=== PATIENT | male | born 1965 | race Caucasian/White ===

== ENCOUNTER 2017-09-27 09:19 | Emergency (ER) | payer BC ==
[~2017-09-27] VITALS: Ht 180.3 cm; Wt 181.5 kg
[~2017-09-27 09:19] MED LIST: ASPEC81 PO; ATEN-173 PO; HYDC25 PO; LSN10 PO; PLV75 PO; POTASSIUM OTC PEG; RQP25 PO
[2017-09-27 09:22] VITALS: TEMP 37.1; Ht 180.3 cm; Wt 181.5 kg
--- NOTE | 2017-09-27 09:56 | EMERGENCY ROOM VISIT NOTE ---
ED Visit Note First contact with patient: 09:27 CHIEF COMPLAINT: right knee pain HISTORY OF PRESENT ILLNESS: This 52-year-old male patient presents to the emergency department 1 day after sustaining an injury to the right knee. The patient is uncertain exactly what caused the injury, but states he was doing a lot of walking yesterday. He does have a history of arthritis in that same knee , and states his pain that he is experiencing now is consistent with his arthritis pain he has had in the past. He states last evening, his pain began increasing, and he noticed some mild swelling within the knee. The pain is mostly on the medial aspect of the knee, and radiates up towards the groin, but not into the groin. The patient did take 3 ibuprofen this morning and 3 last evening, with minimal relief in his symptoms. The patient denies any other injuries besides their knee. The patient denies swelling or bruising. They rate the pain as sharp and 9/10. The patient states they are able to walk on it. No numbness or tingling. No previous injuries to this knee. No ankle, foot or hip pain. The patient does not have a history of blood clots or DVTs. He does not live a sedentary lifestyle, and is on no hormones. There was no recent travel. He does report previous intra-articular surgery for arthritis. REVIEW OF SYSTEMS: A 6 system review of systems was completed with positives and pertinent negatives listed in the HPI. ALLERGIES: None MEDICATIONS: Plavix, Ropinirole, lisinopril, atenolol, aspirin, potassium, meloxicam, Pravachol PMH: Hypertension, cardiac stent, knee surgeries, asthma, COPD, gallstone SOCIAL HISTORY: The patient lives locally with family. He denies drug, alcohol , tobacco use. PHYSICAL EXAM: Vital Signs: Reviewed Nurse's notes, vital signs stable. GENERAL : This is a 52-year-old obese white male, no acute distress, but appears in pain , well-developed, well-nourished. MENTAL STATUS: Alert, oriented to person place and time, and cooperative. MUSCULOSKELETAL: The right knee is mildly swollen medially. There is no ecchymosis. There is no obvious joint effusion present. The patient is tender in the medial aspect and radiating up toward the medial thigh. There is no joint line tenderness. The patella does appropriately subluxate. Range of motion is full. Strength of the quads and hamstrings is 5/ 5. Allie's is negative. Glendy's and Anterior Drawer tests are negative. There is no discomfort or laxity with varus and valgus stressing. The foot and toes are warm and well-perfused. Dorsalis pedis pulse 2+. Sensation to pain and light touch is intact. Capillary refill less than 2 seconds. RADIOLOGY: RIGHT KNEE 3 VIEWS CLINICAL HISTORY: Medial right knee pain. FINDINGS: AP, crosstable lateral, and sunrise views of the right knee are obtained. No prior studies are available for comparison at the time of dictation. The skeletal structures are well mineralized. No fracture is seen. There is moderate narrowing seen in the medial and patellofemoral compartments. The lateral joint space is preserved. There are large marginal osteophytes and small patellar enthesophytes. A small joint effusion is identified. Mild soft tissue swelling is seen around the knee. IMPRESSION: 1. Mild soft tissue swelling and joint effusion. No acute bony abnormality is identified. 2. Arthritic change as above. Electronically signed by: Lei Lopez M.D. 09/27/2017 10:26 AM Dictated Date/Time: 09/27/2017 10:25 AM EMERGENCY DEPARTMENT COURSE: I examined the patient. X-rays of the right knee were reviewed by myself and read by radiology as above. After the patient an assistive device for ambulation including walker, crutches, or cane. The patient declines. I discussed with him treatment options including anti- inflammatories, steroids, or topical medications. The patient would like to try some Voltaren gel topically, and will follow up outpatient with his orthopedic surgeon. He did request a steroid prescription in case of worsening symptoms, as he is going out of town tomorrow. Discharge instructions reviewed , and the patient was discharged home in good condition. Blood Pressure Screening: Patient was found to have a slightly elevated blood pressure due to circumstances. I do not believe that the patient requires hypertension monitoring. I attest that I have personally reviewed the patient's current medication list. DIFFERENTIAL DIAGNOSIS: Fracture, sprain, strain, contusion, arthritis, rheumatoid arthritis, Lyme disease, gout, cellulitis, septic arthritis, malignancy, and others DIAGNOSIS: Right knee pain Problem List Medical Problems: (1) HTN (hypertension) Status: Chronic Current/Historical Medications Scheduled Aspirin (Aspirin EC Low Dose), 81 MG PO QPM Atenolol (Tenormin), 50 MG PO QPM Atorvastatin (Lipitor), 80 MG PO QPM Clopidogrel (Plavix), 75 MG PO QPM Hydrochlorothiazide (Hctz), 25 MG PO QPM Lisinopril (Zestril), 20 MG PO QPM Meloxicam (Mobic), 15 MG PO QPM Methylprednisolone (Medrol Dosepak), 0 PO DAILY Pantoprazole (Protonix), 40 MG PO QPM Potassium (Potassium), 1 TAB PO QPM Scheduled PRN Diclofenac Sodium (Topical) (Voltaren 1% Top Gel), 1 APPLN TOP QID PRN for Pain Nitroglycerin (Nitrostat), 0.4 MG UT PRN PRN for CHEST PAIN Ropinirole HCl (Ropinirole HCl), 0.25 MG PO HS PRN for restless leg Allergies Coded Allergies: No Known Allergies (Verified , `, 09/27/17) Vital Signs Date Time Temp Pulse Resp B/P (MAP) Pulse Ox O2 Delivery O2 Flow Rate FiO2 09/27/17 11:17 63 18 171/97 94 09/27/17 09:22 37.1 63 18 184/120 94 Room Air Departure Information Impression Primary Impression: Knee pain Dispostion Home / Self-Care Condition GOOD Prescriptions Methylprednisolone (MEDROL DOSEPAK) 4 Mg Donovan 0 PO DAILY, #1 PKT Prov: Parul Vanegas PA-C 09/27/17 Diclofenac Sodium (Topical) (VOLTAREN 1% TOP GEL) 1 % Gel 1 APPLN TOP QID Y for Pain, #1 TUBE Prov: Parul Vanegas PA-C 09/27/17 Referrals No Doctor, Assigned (PCP) Chauncey Orozco M.D. Patient Instructions ED Knee Pain [facility], [facility] Additional Instructions You have been treated in the Emergency Department for Knee Pain. You have been prescribed Voltaren gel to be used topically on the affected joint up to 4 times daily for pain. Use this medication as prescribed. You have been prescribed a Medrol Dosepak to be taken ONLY if no improvement in 2-3 days with other remedies. This is a steroid which will help decrease your inflammation, redness, and itch. Take the medicine as prescribed. Take the ENTIRE 6 day course of the steroids. As discussed, this medication can increase her risk of cardiac events. Do not take any other NSAIDs including meloxicam, ibuprofen, Advil, Motrin, Aleve, naproxen while taking steroids. For pain control, you can use the following qaya-ndm-roabgne medicines (if >12 yo): Acetaminophen(Tylenol) may be used for fever or pain. Use 1000mg every six hours as needed. Avoid using more than 3000mg in a 24 hour period. If this is a recent injury (<24 hrs), ice can be applied to the area of pain for the first 3 days to help decrease pain and inflammation. Ice massages can be performed by freezing water in a paper cup, peeling back the cup to expose the ice and then massaging over the affected area. Use a walker or cane if needed to help with ambulation and balance. Follow-up with your orthopedic surgeon as soon as possible for further evaluation of your chronic knee pain. Return to the Emergency Department if your current symptoms worsen despite treatment course outlined above. Problem Qualifiers Primary Impression: Knee pain Chronicity: acute Laterality: right Qualified Codes: M25.561 - Pain in right knee
[2017-09-27] MEDS ORDERED: PANT40TA PO (10:21)
[2017-09-27] MEDS ORDERED: NTRGSL/4 UT (10:21)
[2017-09-27] MEDS ORDERED: MELO-84 PO (10:21)
[2017-09-27] MEDS ORDERED: ATEN50TA8 PO (10:21)
[2017-09-27] MEDS ORDERED: LISI-725 PO (10:21)
[2017-09-27] MEDS ORDERED: HYDR25TA4 PO (10:21)
[2017-09-27] MEDS ORDERED: CLOP1TAB15 PO (10:21)
[2017-09-27] MEDS ORDERED: POTA75TA PO (10:21)
[2017-09-27] MEDS ORDERED: ATOR-26 PO (10:21)
--- NOTE | 2017-09-27 10:28 | DIAGNOSTIC IMAGING REPORT ---
RIGHT KNEE 3 VIEWS CLINICAL HISTORY: Medial right knee pain. FINDINGS: AP, crosstable lateral, and sunrise views of the right knee are obtained. No prior studies are available for comparison at the time of dictation. The skeletal structures are well mineralized. No fracture is seen. There is moderate narrowing seen in the medial and patellofemoral compartments. The lateral joint space is preserved. There are large marginal osteophytes and small patellar enthesophytes. A small joint effusion is identified. Mild soft tissue swelling is seen around the knee. IMPRESSION: 1. Mild soft tissue swelling and joint effusion. No acute bony abnormality is identified. 2. Arthritic change as above. Electronically signed by: Lei Lopez M.D. 09/27/2017 10:26 AM Dictated Date/Time: 09/27/2017 10:25 AM
[2017-09-27] MEDS ORDERED: METH4PAK PO (11:05)
[2017-09-27] MEDS ORDERED: DICL1GEL12 TOP (11:05)
[2017-09-27 11:17] VITALS: BP 171/97; PULSE 63; O2SAT 94
== END 2017-09-27 11:17 | disposition home or self-care (01) ==
LOC: C.EDB 09:22 → C.EDA 11:17
DX: S89.91XA Unspecified injury of right lower leg, initial encounter (principal); X58.XXXA Exposure to other specified factors, initial encounter; Y93.01 Activity, walking, marching and hiking; M17.11 Unilateral primary osteoarthritis, right knee; I10 Essential (primary) hypertension; J44.9 Chronic obstructive pulmonary disease, unspecified; Z98.890 Other specified postprocedural states; Z79.82 Long term (current) use of aspirin; Z95.5 Presence of coronary angioplasty implant and graft

== ENCOUNTER → 2018-02-23 | Outpatient (CLI) | payer BC ==
[~2018-02-23] MED LIST changes: -ASPEC81 PO; +ASPI-320 PO; -ATEN-173 PO; +ATEN50TA8 PO; +ATOR-26 PO; +CLOP1TAB15 PO; +DICL1GEL12 TOP; -HYDC25 PO; +HYDR25TA4 PO; +LISI-725 PO; -LSN10 PO; +MELO-84 PO; +NTRGSL/4 UT; +PANT40TA PO; -PLV75 PO; +POTA75TA PO; -POTASSIUM OTC PEG
--- NOTE | 2018-02-24 00:55 | PAP/PSG TECHNICIAN REPORT ---
[facility] Produce Team Member Polysomnogram Report Study name: None Report date: 02/24/2018 Study date: 02/23/2018 Referring Physician: Dr. Faith Whitley M.D. Name: DEANN RDZ Galo Interpreting Physician: Faith Whitley M.D. Date of : 1965 Produce Team Member: GOKUL Thomas. Sex: Male Age: 52 StudyType: PSG PAP Weight: 407 lbs Height: 52 years, Height 5' 11" Neck Circum:19.25inches BMI: 56.76 Medications: ASA, Ropinirole, Lisinopril, HCTZ, Indomethacin, Acetaminophen, Atenolol, Atorvastatin, Pantoprazole, [place] 3, Fish Oil, Meloxicam, Potassium, NTG Patient History Study started on room air with 5cwp in room #8. 52 yr old male here tonight for a new titration study. He had a PSG at [facility] that had an AHI of 81.3. His ESS=21/24. Neck circ=19.25inches. Tonight, he is having severe pain in his right knee. He stated that he took at least twenty- four (24) Tylenol today for pain. Parameters Monitored NPSG: E1-M2, E2-M1, Fp1-M2, Fp2-M1, F3-M2, F4-M2, F4-M1, C3-M2, C4-M2, C4-M1, O1-M2, O2-M2, O2-M1, T3-M2, T4-M1, P3-M2, P4-M1, CHIN1, CHIN2, HR, EKG, Legs, PFLOW, SNOR, FLOW, CFLOW, Tidal Volume, THOR, ABDO, SpO2, PLTH, CPRESS, ETCO2 Wave, ETCO2, pH Sleep Architecture Sleep Stages Time at Lights Off 10:53:49 PM STAGES Time (min.) TST (%) Time at Lights On 12:39:49 AM Wake 57.0 -- Total Recording Time (TRT) 106.00 min. N1 4.0 8 Total Sleep Period (TSP) 91.0 min. N2 45.0 92 Total Sleep Time (TST) 49.0min. N3 0.0 0 Awake Time 57.0 min. REM 0.0 0 Wake after Sleep Onset 57.0 min. Sleep Efficiency (SE) 46 % Sleep Onset Latency (SELVIN) 0.0 min. Number of Stage 1 Shifts None Awakenings 4 Stage Changes 14 Number of REM periods N/A REM 0.0 0 REM Latency NONE min. NREM 49.0 100 Body Position Analysis Supine Right Left Side Prone Vertical Total Sleep Time (min.) 54.1 1.5 1.0 2.50 0.0 0.0 Total Sleep Time (%) 95% 3% 2% 5 0% N/A% Total Sleep Time REM (min.) 0.0 0.0 0.0 None 0.0 0.0 Total Sleep Time NREM (min.) 46.5 1.5 1.0 None 0.0 0.0 Intermittent Wake (min.) 7.6 35.5 14.0 None 0.0 0.0 Total Sleep Period (%) 58% None None None None None Arousals Myoclonus (PLM) * Events Count Index Events Count Index Spontaneous 1 1 Events Awake (PLMW) 102 107.4 Respiratory 33 41.6 Events Asleep w/ Arousal (PLMA) 2 2.4 PLM 2 2 Events Asleep w/o Arousal (PLMS) 97 118.8 Snoring 2 2 Total Asleep 99 121.2 Total 38 47 Total 201 114 Respiratory Analysis * CA OA MA CH H RERA Total Count 0 5 0 0 79 2 84 Index 0.0 6.1 0.0 0 96.7 2 102.9 Mean Duration 0.0 17.3 0.0 0.00 24.4 0.1 24.0 Longest Duration 0.0 21.5 0.0 0.00 0.0 0.1 65.4 Respiratory Event Summary Total Supine ~Supine Right Left Prone REM NREM Apneas Count 5 5 0 0 0 N/A N/A 5 Index 6.1 6 0 0.0 0.0 N/A N/A 6 Hypopneas (4% Desat) Count 79 75 4 2 2 N/A N/A 79 Index 96.7 96.8 96 80.0 120.0 N/A N/A 96.7 Apneas & All Hypopneas Count 84 80 4 2 2 N/A N/A 84 Index 102.9 103 96 80 120 N/A N/A 102.9 Respiratory Events (Quality Assurance Supervisor Final+All Hyp+RERA) Count 84 80 4 2 2 N/A N/A 84 Index 102.9 103 96 80.0 120.0 N/A N/A 102.9 Respiratory Related Arousal Count 33 80 4 2 2 N/A N/A 34 Index 41.6 39 96 80 120 N/A N/A 42 Snoring Analysis Supine Right Left Prone REM NREM Total Snore duration 11.9 min Snores count 315 7 0 N/A N/A 322 322 Snore mean duration 2.2 Sec Snores index 406 280 0 N/A N/A 394.3 394.3 TST with snoring (%) 24.3% Desaturation Event Summary: Minimum %SpO2 Event Count Mean/Min/Max Duration(sec.) Desaturation Index % Time In Bed > 90 111 19.6 / 5.8 / 50.5 151.1 50.8 86 - 90 48 18.0 / 0.0 / 49.5 104.6 31.7 81 - 85 8 13.0 / 4.8 / 21.3 39.7 13.9 76 - 80 0 N/A 0.0 3.2 71 - 75 0 N/A 0.0 0.4 66 - 70 0 N/A 0.0 0.0 61 - 65 0 N/A 0.0 0.0 56 - 60 0 N/A 0.0 0.0 51 - 55 0 N/A 0.0 0.0 < 50 0 N/A 0.0 0.0 Total REM NREM Awake <50% 0.0 min. 0.0 min. 0.0 min. 0.0 min. 51 - 60% 0.0 min. 0.0 min. 0.0 min. 0.0 min. 61 - 70% 0.0 min. 0.0 min. 0.0 min. 0.0 min. 71 - 80% 3.1 min. 0.0 min. 2.9 min. 0.2 min. 81 - 90% 39.6 min. 0.0 min. 29.4 min. 10.2 min. 91 - 100% 44.1 min. 0.0 min. 15.7 min. 28.4 min. Average 90 0 88 92 Minimum SpO2 72 N/A 72 74 Desaturation Event Index 75.8 0.0 100.4 54.7 # Desat. Events below 89% 96 N/A 71 25 Time(%) with Saturation below 89% 33.7 0.0 28.0 5.7 Time(min.) with Saturation below 89% 29.2 0.0 24.3 4.9 Heart Rate Analysis Min (bpm) Max (bpm) Average (bpm) Awake 30 188 93 NREM 39 127 72 REM N/A N/A N/A Overall 39 127 72 Supplemental O2 Values Minimum O2 level: None Value Start Time End Time Produce Team Member Comments Mr. Rdz slept in the right, left and supine positions. No cardiac arrhythmia noted. PLM's were noted. No bruxism noted. CPAP was initiated at +5 CMH2O and up-titrated to a level of +[id number]. The patient ended the study early at 12:34am. An optimal pressure was not obtained. He was having pain in his right leg and said that the wires and bed were bothering him. A large Mirage Quattro full face mask by [employer] was used during titration. He awoke to use the restroom 1 time during the night. He stated that he did not sleep as well as when at home. He is willing to try an auto-pap at home. The final report will be interpreted and signed by a sleep physician. The completed physician report will then be placed in the patient medical record. Therapy Event: Therapy (cm H20) 5 7 9 11 13 15 Total Time at Pressure (min.) 2.2 5.7 6.1 43.6 14.4 34.1 TST at Pressure (min.) 2.2 5.7 6.1 16.6 14.4 4.1 # Periods 1 1 1 1 1 1 Sleep Onset (min.) 0.0 0.0 0.0 0.0 0.0 0.0 REM Onset (min.) N/A N/A N/A N/A N/A N/A Sleep Efficiency % 100 100 100 38 100 12 Wakefulness (%) 0.0 0.0 0.0 62.0 0.0 87.9 Wakefulness (min.) 0.0 0.0 0.0 27.0 0.0 30.0 NREM 1 (%) 77.0 14.5 0.0 2.3 0.0 1.5 NREM 1 (min.) 1.7 0.8 0.0 1.0 0.0 0.5 NREM 2 (%) 23.0 85.5 100.0 35.7 100.0 10.6 NREM 2 (min.) 0.5 4.9 6.1 15.6 14.4 3.6 NREM 3 (%) 0.0 0.0 0.0 0.0 0.0 0.0 NREM 3 (min.) 0.0 0.0 0.0 0.0 0.0 0.0 REM (%) 0.0 0.0 0.0 0.0 0.0 0.0 REM (min.) 0.0 0.0 0.0 0.0 0.0 0.0 # Arousals 4 6 0 17 7 4 Arousal Index 110.4 63.4 0.0 61.6 29.3 58.3 # Snore 10 48 55 107 81 21 Snore Index 276.1 506.9 538.8 387.9 338.5 306.3 AHI 138.0 84.5 98.0 97.9 104.5 131.3 AHI Supine 138.0 84.5 98.0 99.7 104.5 134.9 AHI Non-Supine N/A N/A N/A 80.0 N/A 120.0 NREM AHI 138.0 84.5 98.0 97.9 104.5 131.3 REM AHI N/A N/A N/A N/A N/A N/A RDI 138.0 84.5 98.0 97.9 104.5 131.3 # Obstructive 3 1 0 1 0 0 # Central Ap 0 0 0 0 0 0 # Mixed 0 0 0 0 0 0 # Hypopneas 2 7 10 26 25 9 RERAS 0 0 0 2 0 0 Total Respiratory Events 5 8 10 27 25 9 Time Below SpO2 89.00% (min.) 1.2 4.2 4.4 4.3 9.0 1.3 Mean NREM SpO2 (%) 87 84 86 90 88 90 Mean REM SpO2 (%) N/A N/A N/A N/A N/A N/A Mean Sleep SpO2 (%) 87 84 86 90 88 90 Min NREM SpO2 (%) 79 72 75 78 78 84 Min REM SpO2 (%) N/A N/A N/A N/A N/A N/A Position Supine (min.) 2.2 5.7 6.1 15.1 14.4 3.1 Position Non-supine (min.) 0.0 0.0 0.0 1.5 0.0 1.0 LM Index Sleep 248.4 84.5 88.2 134.1 104.5 160.5 LM Index NREM 248.4 84.5 88.2 134.1 104.5 160.5 LM Index REM N/A N/A N/A N/A N/A N/A Mean Heart Rate (bpm) 76 70 70 72 73 77 Min Heart Rate (bpm) 68 59 61 39 63 67
== END | disposition home or self-care (01) ==
LOC: C.NEUR 20:00
PROVIDERS: ATTEND Internal Medicine
DX: G47.33 Obstructive sleep apnea (adult) (pediatric) (principal)

== ENCOUNTER 2020-07-10 07:33 | Observation (INO) ==
[2020-07-10] MEDS ORDERED: MoRPHine SULFATE 4 MG/ML 1 ML CARP\\VIAL IV PRN (07:45)
[2020-07-10] MEDS ORDERED: ONDANSETRON INJ 2 MG/ML 2 ML VIAL IV STA (07:45)
--- NOTE | 2020-07-10 07:45 | Emergency Department Note ---
Impression & Plan Chest pain ED Provider Note NAME: DEANN SAL AGE: 54 SEX: M : 1965 ARRIVES VIA: Ambulance INFORMANT: Patient, prehospital personnel ED PROVIDER(S): Dwayne Green DO CHIEF COMPLAINT: Chest pain HPI: The patient is a 54-year-old male who has a history of coronary artery disease including coronary artery stenting who presented to the emergency department for an evaluation of chest pain. The patient started to develop chest heaviness between 10 PM and 12 AM last night. He notices that as a chest pressure over the left side of his chest. It radiates to the right side of the chest. He does notice some back pain. The patient denies having any dysuria or frequency. He has no nausea or vomiting. He complains of no cough or fever. The patient states he did take a total of 3 nitroglycerin prior to calling 911. He states his pain is only mildly improved with this modality. He has not had used nitroglycerin in 10 years. He states that he has some shortness of breath. He does note some lower extremity edema as well. The patient recently had his cardiology appointment canceled by his primary management nurse rn. He was doing well on his usual medication regimen and states that he has been compliant with his outpatient medication regimen. He was treated with aspirin as well as fentanyl prior to arrival. He states his pain is only mildly improved. He was also placed on supplemental oxygen. He states pain is worsened with some exertion. He denies having any reproducibility with breathing or palpation. ROS: See above HPI for pertinent positives & negatives. A total of 10 systems reviewed and were otherwise negative. PAST MEDICAL HISTORY: See Below PAST SURGICAL HISTORY: See Below FAMILY HISTORY: See Below SOCIAL HISTORY: See Below HOME MEDICATIONS: See Below ALLERGIES: See Below VITALS: See Below PHYSICAL EXAMINATION: GENERAL: The patient is awake and alert. He is somewhat anxious appearing and appears to be uncomfortable. EYES: The conjunctivae are clear. The pupils are round and reactive. EARS, NOSE, MOUTH AND THROAT: The nose is without any evidence of any deformity. NECK: The neck is nontender and supple. RESPIRATORY: Normal respiratory effort is noted there is no evidence of wheezing rhonchi or rales CARDIOVASCULAR: Regular rate and rhythm noted there no murmurs rubs or gallops normal S1 normal S2. GASTROINTESTINAL: The abdomen is soft. Abdomen is nontender. MUSCULOSKELETAL/EXTREMITIES: There is no evidence of gross deformity full range of motion is noted in the hips and shoulders. SKIN: There is no obvious evidence of any rash. Trace pedal edema was noted bilaterally. NEUROLOGIC: Patient is awake alert and oriented x3. MEDICAL DECISION MAKING: The patient is a 54-year-old male who presented to the emergency department for an evaluation of chest pain. The patient is a history of morbid obesity as well as diabetes. The patient is very high risk. He took nitroglycerin at home without relief of his symptoms. The patient was treated with pain medication in the emergency department. He was reevaluated multiple times. The patient states that he is pain-free at this time. I discussed the patient's laboratory and radiographic studies with him. I also discussed the limitations of the emergency department work-up for chest pain with him. Given his past medical history and risk factors I discussed his case with the on-call [facility]. They have agreed to evaluate the patient in the emergency department for further management and disposition. Triage Nursing notes reviewed. Prior medical records reviewed Vital Signs: reviewed and remarkable for elevated blood pressure. Differential diagnosis: Cardiac ischemia, aortic dissection, pulmonary embolism, pneumothorax, pneumonia, pericarditis, myocarditis, esophageal rupture, GERD, cholecystitis, pancreatitis, musculoskeletal, as well as other pathologies. ER treatment provided: See below Diagnostics interpreted by me: ECG: EKG was obtained in the emergency department. My interpretation is sinus tachycardia at 102 bpm. There was no ectopy. There was no acute ST segment abnormalities noted. Inferior Q waves were noted. This was compared to a tracing from May 10, 2018. There was an increase in the rate however no other significant changes were noted. Cardiac Monitoring: An order was placed for continuous cardiac monitoring. The monitor shows a rate of 89 bpm with sinus rhythm. Laboratory studies: As stated above and show below. Imaging studies: See below Consultation(s): 0905: I discussed this case with Zahra who is on-call for the [facility]. Past Med/Surg History Medical History (Updated 07/10/20 @ 10:38 by Zahra Brennan PA-C) CAD (coronary artery disease) GERD (gastroesophageal reflux disease) Gout Hyperlipidemia Morbid obesity Osteoarthritis Restless leg syndrome Sleep apnea CPAP SOB (shortness of breath) on exertion Surgical History History of anesthesia reaction BRONCHOSPASM POST EXTUBATION History of arthroscopy of right knee History of cardiac cath 1 STENT 05/2016 [facility] History of cataract surgery 09[place]08[place]18 [place] [facility] [place] History of vitrectomy Lt Hx of hand surgery L EFT-REVISION TIP FINGER Family History (Updated 07/10/20 @ 10:30 by Zahra Brennan PA-C) Mother Family history of diabetes mellitus Coronary heart disease, Onset Age: 63 Father Coronary heart disease, Onset Age: 57 Cancer Social History (Updated 07/10/20 @ 10:31 by Zahra Brennan PA-C) Smoking Status: Never smoker Tobacco Type: Smokeless Tobacco (Dip or Chew) Second Hand Exposure: No; Hx Alcohol Use: Yes Alcohol type: beer Alcohol Intake Frequency: Monthly or Less Hx Substance Use: No Preferred Language: Cambodian Communication Ability: Effective 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 Beliefs That Will Affect Care: None Current Living Situation: Family Current Living Situation Comment: LIVES WITH DAUGHTERS Feels Safe at Home: Yes Assistive Devices: Glasses Allergies Allergies Allergy/AdvReac Type Severity Reaction Status Date / Time No Known Allergies Allergy ` Verified 07/10/20 08:25 Home Meds Home Medications Medication Instructions Recorded Confirmed atenolol 50 mg PO QPM 05/07/18 07/10/20 atorvastatin 80 mg PO QPM 05/07/18 07/10/20 hydrochlorothiazide 50 mg PO QPM 05/07/18 07/10/20 lisinopril 20 mg PO QPM 05/07/18 07/10/20 meloxicam 15 mg PO QPM 05/07/18 07/10/20 nitroglycerin [Nitrostat] 0.4 mg SUBLINGUAL UD PRN 05/07/18 07/10/20 pantoprazole 40 mg PO QPM 05/07/18 07/10/20 ropinirole 0.25 mg PO HS 05/07/18 07/10/20 aspirin [Aspir-81] 81 mg PO HS 07/10/20 07/10/20 baclofen 10 mg PO HS PRN 07/10/20 07/10/20 hydroxyzine HCl 25 mg PO HS PRN 07/10/20 07/10/20 indomethacin 25 mg PO BIDM 07/10/20 07/10/20 potassium gluconate 595 mg PO HS 07/10/20 07/10/20 temazepam 7.5 mg PO HS PRN 07/10/20 07/10/20 trazodone 150 mg PO HS 07/10/20 07/10/20 Results & Data (ED) Vital Signs Vital Signs - 24 hr 07/10/20 07:40 07/10/20 07:45 07/10/20 07:50 Temperature 36.7 C Temperature Source Oral Pulse Rate 83 87 87 Pulse Rate from SpO2 Sensor 86 85 88 Respiratory Rate 16 13 22 Blood Pressure 110/79 142/89 H Blood Pressure Mean 94 106 Pulse Oximetry 92 90 92 Oxygen Delivery Method Room Air Sepsis Recent Fever Within 48 Hours No Sepsis New/Unexplained Change in Mental Status N/A Sepsis Action Taken by Nursing No Action Required 07/10/20 08:00 07/10/20 08:01 07/10/20 08:10 Temperature Temperature Source Pulse Rate 86 87 89 Pulse Rate from SpO2 Sensor 85 87 90 Respiratory Rate 12 14 20 Blood Pressure 106/85 Blood Pressure Mean 101 Pulse Oximetry 91 90 91 Oxygen Delivery Method Sepsis Recent Fever Within 48 Hours Sepsis New/Unexplained Change in Mental Status Sepsis Action Taken by Nursing 07/10/20 08:20 07/10/20 08:30 07/10/20 08:31 Temperature Temperature Source Pulse Rate 92 H 85 84 Pulse Rate from SpO2 Sensor 86 86 85 Respiratory Rate 14 15 13 Blood Pressure 103/83 Blood Pressure Mean 88 Pulse Oximetry 84 L 90 90 Oxygen Delivery Method Sepsis Recent Fever Within 48 Hours Sepsis New/Unexplained Change in Mental Status Sepsis Action Taken by Nursing 07/10/20 08:40 07/10/20 08:50 07/10/20 09:00 Temperature Temperature Source Pulse Rate 87 88 86 Pulse Rate from SpO2 Sensor 86 87 87 Respiratory Rate 18 16 15 Blood Pressure 104/84 Blood Pressure Mean 89 Pulse Oximetry 91 88 L 89 L Oxygen Delivery Method Sepsis Recent Fever Within 48 Hours Sepsis New/Unexplained Change in Mental Status Sepsis Action Taken by Nursing 07/10/20 09:01 07/10/20 09:10 07/10/20 09:20 Temperature Temperature Source Pulse Rate 89 88 86 Pulse Rate from SpO2 Sensor 88 88 86 Respiratory Rate 13 15 17 Blood Pressure Blood Pressure Mean Pulse Oximetry 86 L 95 96 Oxygen Delivery Method Sepsis Recent Fever Within 48 Hours Sepsis New/Unexplained Change in Mental Status Sepsis Action Taken by Long Term Medications Current Medication List: was personally reviewed by me Laboratory Data Attestation: I reviewed the patient's lab results. Result diagrams: 07/10/20 07:40 07/10/20 07:40 Lab Results 07/10/20 07/10/20 07/10/20 Range/Units 07:40 07:40 07:40 WBC 10.17 (4.8-10.8) K/uL RBC 4.53 L (4.7-6.1) M/uL Hgb 14.0 (14.0-18.0) g/dL Hct 40.8 L (42-52) % MCV 90.1 (80-100) fL MCH 30.9 (25-34) pg MCHC 34.3 (32-36) g/dL RDW Std Deviation 42.3 (36.4-46.3) fL RDW Coeff of Ghada 12.9 (11.5-14.5) % Plt Count 220 (130-400) K/uL MPV 9.9 (7.4-10.4) fL Immature Gran % (Auto) 0.1 % Neut % (Auto) 73.9 % Lymph % (Auto) 17.8 % Republic % (Auto) 6.6 % Eos % (Auto) 1.3 % Baso % (Auto) 0.3 % Neut # (Auto) 7.52 H (1.4-6.5) K/uL Lymph # (Auto) 1.81 (1.2-3.4) K/uL Republic # (Auto) 0.67 H (0.11-0.59) K/uL Eos # (Auto) 0.13 (0-0.5) K/uL Baso # (Auto) 0.03 (0-0.2) K/uL Immature Gran # (Auto) 0.01 (0.00-0.02) K/uL PT 10.3 (9.0-12.0) Seconds INR 1.0 (0.9-1.1) APTT 27.2 (21.0-31.0) Seconds PTT Ratio 1.0 Sodium 138 (136-145) mmol/L Potassium 3.8 (3.5-5.1) mmol/L Chloride 104 (98-107) mmol/L Carbon Dioxide 25 (21-32) mmol/L Anion Gap 8.0 (3-11) BUN 20 H (7-18) mg/dl Creatinine 1.18 (0.6-1.4) mg/dl Est Cr Clr Drug Dosing 123.8 ml/min Est GFR ( Amer) 79.5 Est GFR (Non-Af Amer) 68.6 BUN/Creatinine Ratio 17.0 (10-20) Glucose 208 H (70-99) mg/dl Calcium 8.7 (8.5-10.1) mg/dl Magnesium (1.8-2.4) mg/dl Total Bilirubin 0.4 (0.2-1) mg/dl AST 19 (15-37) U/L ALT 36 (12-78) U/L Alkaline Phosphatase 124 H (45-117) U/L Troponin I < 0.015 (0-0.045) ng/ml Total Protein 7.1 (6.4-8.2) gm/dl Albumin 3.3 L (3.4-5.0) gm/dl Globulin 3.8 (2.5-4.0) gm/dl Albumin/Globulin Ratio 0.9 (0.9-2) Lipase 102 (73-393) U/L 07/10/20 Range/Units 07:40 WBC (4.8-10.8) K/uL RBC (4.7-6.1) M/uL Hgb (14.0-18.0) g/dL Hct (42-52) % MCV (80-100) fL MCH (25-34) pg MCHC (32-36) g/dL RDW Std Deviation (36.4-46.3) fL RDW Coeff of Ghada (11.5-14.5) % Plt Count (130-400) K/uL MPV (7.4-10.4) fL Immature Gran % (Auto) % Neut % (Auto) % Lymph % (Auto) % Republic % (Auto) % Eos % (Auto) % Baso % (Auto) % Neut # (Auto) (1.4-6.5) K/uL Lymph # (Auto) (1.2-3.4) K/uL Republic # (Auto) (0.11-0.59) K/uL Eos # (Auto) (0-0.5) K/uL Baso # (Auto) (0-0.2) K/uL Immature Gran # (Auto) (0.00-0.02) K/uL PT (9.0-12.0) Seconds INR (0.9-1.1) APTT (21.0-31.0) Seconds PTT Ratio Sodium (136-145) mmol/L Potassium (3.5-5.1) mmol/L Chloride (98-107) mmol/L Carbon Dioxide (21-32) mmol/L Anion Gap (3-11) BUN (7-18) mg/dl Creatinine (0.6-1.4) mg/dl Est Cr Clr Drug Dosing ml/min Est GFR ( Amer) Est GFR (Non-Af Amer) BUN/Creatinine Ratio (10-20) Glucose (70-99) mg/dl Calcium (8.5-10.1) mg/dl Magnesium 2.0 (1.8-2.4) mg/dl Total Bilirubin (0.2-1) mg/dl AST (15-37) U/L ALT (12-78) U/L Alkaline Phosphatase (45-117) U/L Troponin I (0-0.045) ng/ml Total Protein (6.4-8.2) gm/dl Albumin (3.4-5.0) gm/dl Globulin (2.5-4.0) gm/dl Albumin/Globulin Ratio (0.9-2) Lipase (73-393) U/L Administered Medications Morphine Sulfate (Morphine Sulfate 4 Mg/Ml 1 Ml Carp\Vial) 4 mg IV Q15M PRN PRN Reason: Pain Stop: 07/24/20 07:44 Last Admin: 07/10/20 08:15 Dose: 4 mg Documented by: [id number] Discontinued Medications Ondansetron HCl (Ondansetron Inj 2 Mg/Ml 2 Ml Vial) 4 mg IV NOW STA Stop: 07/10/20 07:46 Last Admin: 07/10/20 08:15 Dose: 4 mg Documented by: [id number] Imaging Data Radiologist's Impression: Patient: DEANN SAL Admit Date: 07/10/20 MR#: [id number] Address1: [address] [facility] Acct ID:[id number] Address2: Date: 1965 [facility] Zip: [place] [facility] [place] [address] Age: 54 Location: ED Sex: M Room/Bed: Att Phy: Diagnosis: CHEST PAIN Hoa Phy: Suresh Trevino Service Date: 07/10/20 [facility] Phy: Interpreting Phy: Foster Hua MD Admit Phy: Ordering Phy: Dwayne Green DO cc: ~ XR chest 1V portable HISTORY: Atypical Chest Pain COMPARISON: Chest CT 05/02/2016. FINDINGS: Stable 7 mm nodule within the right midlung zone. Therefore, this is likely benign. There are low lung volumes. No focal lung consolidations to suggest pneumonia. No evidence for pulmonary edema. No pleural effusions. No pneumothorax. IMPRESSION: No significant change compared to the prior study. No acute process. ACT 112: Negative or not required by law. Electronically signed by: Foster Hua M.D. 07/10/2020 8:35 AM Dictated: 07/10/20 0830 Transcribed: 07/10/20 0830 Blood Pressure Blood Pressure Findings: Elevated blood pressure Blood Pressure Disposition: further management by hospitalist Discharge Plan Visit Data Chief Complaint: Chest Pain ED Provider: Dwayne Green Discharge Problem: Chest pain Patient Disposition: Being Evaluated by Hospitalist Condition: Good
[2020-07-10 07:53] LABS: Basophils # (auto) 0.03 K/uL (0-0.2); Basophils % (auto) 0.3 %; Eosinophils # (auto) 0.13 K/uL (0-0.5); Eosinophils % (auto) 1.3 %; Hematocrit (blood only) 40.8 % (42-52); Immature Granulocytes # (auto) 0.01 K/uL (0.00-0.02); Immature Granulocytes % (auto) 0.1 %; Lymphocytes # (auto) 1.81 K/uL (1.2-3.4); Lymphocytes % (auto) 17.8 %; Mean Corpuscular Hemoglobin 30.9 pg (25-34); Mean Corpuscular Hgb Conc 34.3 g/dL (32-36); Mean Corpuscular Volume 90.1 fL (80-100); Mean Platelet Volume 9.9 fL (7.4-10.4); Monocytes # (auto) 0.67 K/uL (0.11-0.59); Monocytes % (auto) 6.6 %; Neutrophils # (auto) 7.52 K/uL (1.4-6.5); Neutrophils % (auto) 73.9 %; Platelet Count 220 K/uL (130-400); RDW Coefficient of Variation 12.9 % (11.5-14.5); RDW Standard Deviation 42.3 fL (36.4-46.3); Red Blood Count 4.53 M/uL (4.7-6.1); White Blood Count 10.17 K/uL (4.8-10.8)
[2020-07-10 08:13] LABS: Partial Thromboplastin Time 27.2 Seconds (21.0-31.0); Prothrombin Time 10.3 Seconds (9.0-12.0)
[2020-07-10 08:24] LABS: Alanine Aminotransferase 36 U/L (12-78); Albumin Globulin Ratio 0.9 (0.9-2); Albumin Level 3.3 gm/dl (3.4-5.0); Alkaline Phosphatase 124 U/L (45-117); Bilirubin,Total 0.4 mg/dl (0.2-1); Blood Urea Nitrogen 20 mg/dl (7-18); Calcium 8.7 mg/dl (8.5-10.1); Carbon Dioxide 25 mmol/L (21-32); Chloride 104 mmol/L (98-107); Creatinine Clr Calc Pharmacy 123.8 ml/min; Est GFR (African American) 79.5; Est GFR (Non-African American) 68.6; Globulin 3.8 gm/dl (2.5-4.0); Glucose 208 mg/dl (70-99); Lipase 102 U/L (73-393); Total Protein 7.1 gm/dl (6.4-8.2); Troponin I < 0.015 ng/ml (0-0.045)
--- NOTE | 2020-07-10 08:36 | XRay Report ---
XR chest 1V portable HISTORY: Atypical Chest Pain COMPARISON: Chest CT 05/02/2016. FINDINGS: Stable 7 mm nodule within the right midlung zone. Therefore, this is likely benign. There a re low lung volumes. No focal lung consolidations to suggest pneumonia. No evidence for pulmonary elizabeth ma. No pleural effusions. No pneumothorax. IMPRESSION: No significant change compared to the prior study. No acute process. ACT 112: Negative or not required by law. Electronically signed by: Foster Hua M.D. 07/10/2020 8:35 AM
[2020-07-10 08:41] LABS: Potassium 3.8 mmol/L (3.5-5.1)
[2020-07-10 08:44] LABS: Sodium 138 mmol/L (136-145)
[2020-07-10 08:46] LABS: Aspartate Aminotransferase 19 U/L (15-37)
[2020-07-10] MEDS ORDERED: POTASSIUM CHLORIDE CRTAB 20 MEQ TABCR PO STA (09:23)
--- NOTE | 2020-07-10 10:33 | History & Physical Report ---
Date of Service July 10, 2020 Assessment & Plan (1) Atypical chest pain: (2) CAD (coronary artery disease): This is a 54-year-old male who has significant past medical history of CAD with history of GRETCHEN to RCA in 2016, HTN, HLD, SALVADOR on CPAP, gout, anxiety and insomnia who presents to ED secondary to chest pain starting at 11 PM. In ED patient remained hemodynamically stable. His CBC and CMP was generally unremarkable except hyperglycemia at 208. SARS-CoV-2 negative. Chest x-ray revealed stable pulmonary nausea but no acute cardiopulmonary normality. EKG unchanged except for lengthening of QTC at 495 MS. In ED he received IV Zofran and morphine. Currently chest pain free. Sx similar to prior presentation requiring stent to RCA. Admit to PCU cycle troponins, ecg - next at 1300 consult cardiology obtain echo prn nitro a1c, lipid panel in a.m. NPO afte midnight for possible stress test pt currently NPO, last intake 0200, refusing stress evaluation today given drowsiness from poor sleep (3) Hyperglycemia: BSG 208 on admission likely undiagnosed T2DM accuchecks, place on Lantus/novolog per protocol A1C with next lab draw (4) HTN (hypertension): Blood pressure 140s/ 90s during my evaluation Continue atenolol, hydrochlorothiazide, lisinopril Monitor (5) Hyperlipidemia: continue statin (6) Morbid obesity: BMI 61.5 encourage diet and lifestyle modifications rat trapper consulted (7) Sleep apnea: CPAP at HS, 16-20cm H20 (8) DVT prophylaxis: Lovenox 40mg SQ Q12h Disposition: admit to PCU for ongoing cardiac monitoring Follow up: PCP Dr. Trevino upon discharge Pt was seen and examined in collaboration with Dr. Porter, please see addendum History of Present Illness Chief Complaint: Chest pain starting at 11pm. Primary Care Provider: Suresh Trevino DO This is a 54-year-old male who has significant past medical history of CAD with history of GRETCHEN to RCA in 2016, HTN, HLD, SALVADOR on CPAP, gout, anxiety and insomnia who presents to ED secondary to chest pain starting at 11 PM. He states he was getting ready to fall asleep when he developed substernal chest pain. Pain described as a sharp ache. It mostly stayed centralized but did occasionally radiate to right and left precordium. Pain was constant and continued to worsen throughout night. He tried taking 1 nitroglycerin at approximately 11 PM with minimal improvement. He did not sleep all night as pain persisted. He was concerned it may be related to his heart. Feels similar to prior presentation which required cardiac catheterization. Symptoms were associated with shortness of breath, nausea and sweating. He took 2 nitro at approximately 5 AM and EMS was summoned. His chest pain resolved. He also received full dose aspirin. He has not had anything to eat or drink yet this morning. Last meal was chicken soup at approximately 11 PM. Chest pain was present prior to this. He takes all medications and evening, last dose last evening. He denies any recent illness, fever, chills, sweats, lightheadedness, dizziness, syncope, palpitations, cough, hemoptysis, URI symptoms, emesis, abdominal pain, change in bowel or urinary habits. He has been compliant with medications as well as CPAP. He is very drowsy right now secondary to not sleeping last evening due to pain. He denies prior use or need for nitroglycerin post stent. In ED patient remained hemodynamically stable. His CBC and CMP was generally unremarkable except hyperglycemia at 208. SARS-Co V-2 negative. Chest x-ray revealed stable pulmonary nausea but no acute cardiopulmonary normality. EKG unchanged except for lengthening of QTC at 495 MS. In ED he received IV Zofran and morphine. Allergies Allergy/AdvReac Type Severity Reaction Status Date / Time No Known Allergies Allergy ` Verified 07/10/20 08:25 Home Medications Medication Instructions Recorded Confirmed Type atenolol 50 mg PO QPM 05/07/18 07/10/20 History atorvastatin 80 mg PO QPM 05/07/18 07/10/20 History hydrochlorothiazide 50 mg PO QPM 05/07/18 07/10/20 History lisinopril 20 mg PO QPM 05/07/18 07/10/20 History meloxicam 15 mg PO QPM 05/07/18 07/10/20 History nitroglycerin [Nitrostat] 0.4 mg SUBLINGUAL UD PRN 05/07/18 07/10/20 History pantoprazole 40 mg PO QPM 05/07/18 07/10/20 History ropinirole 0.25 mg PO HS 05/07/18 07/10/20 History aspirin [Aspir-81] 81 mg PO HS 07/10/20 07/10/20 History baclofen 10 mg PO HS PRN 07/10/20 07/10/20 History hydroxyzine HCl 25 mg PO HS PRN 07/10/20 07/10/20 History indomethacin 25 mg PO BIDM 07/10/20 07/10/20 History potassium gluconate 595 mg PO HS 07/10/20 07/10/20 History temazepam 7.5 mg PO HS PRN 07/10/20 07/10/20 History trazodone 150 mg PO HS 07/10/20 07/10/20 History Past Med/Surg History Medical History (Updated 07/10/20 @ 10:38 by Zahra Brennan PA-C) CAD (coronary artery disease) GERD (gastroesophageal reflux disease) Gout Hyperlipidemia Morbid obesity Osteoarthritis Restless leg syndrome Sleep apnea CPAP SOB (shortness of breath) on exertion Surgical History History of anesthesia reaction BRONCHOSPASM POST EXTUBATION History of arthroscopy of right knee History of cardiac cath 1 STENT 05/2016 [facility] [place] [facility] [place] of vitrectomy Lt Hx of hand surgery L EFT-REVISION TIP FINGER Family History (Updated 07/10/20 @ 10:30 by Zahra Brennan PA-C) Mother Family history of diabetes mellitus Coronary heart disease, Onset Age: 63 Father Coronary heart disease, Onset Age: 57 Cancer Social History (Updated 07/10/20 @ 10:31 by Zahra Brennan PA-C) Smoking Status: Never smoker Tobacco Type: Smokeless Tobacco (Dip or Chew) Second Hand Exposure: No; Hx Alcohol Use: Yes Alcohol type: beer Alcohol Intake Frequency: Monthly or Less Hx Substance Use: No Preferred Language: Chinese Communication Ability: Effective Upper And Bottom Lacer Hand Required: No Beliefs That Will Affect Care: None Current Living Situation: Family Current Living Situation Comment: LIVES WITH DAUGHTERS Feels Safe at Home: Yes Assistive Devices: Glasses Review of Systems Review of Systems: All systems reviewed & are unremarkable except as noted in HPI & below Physical Exam Physical Exam: Constitutional: Morbidly obese, male, drowsy, arouses to verbal stimulation, vitals as above, NAD, sitting up in bed, answers questions appropriately Head: Normocephalic, Atraumatic Eyes: PERRL, conjunctivae normal, anicteric sclerae ENMT: external ear and nose normal, oropharynx normal Neck: trachea midline, no thyromegaly normal visual inspection Respiratory: normal respiratory effort, lungs clear to auscultation, no wheeze, rales, rhonchi. Normal insp/exp effort, no accessory muscle use Cardiovascular: RRR, 1/6 LIANA noted LUSB, bilateral obese lower extremities, no zelalem edema, negative erythema, warmth negative Homans Vessels: no JVD or carotid bruit Chest: normal inspection of chest Abdomen: Protuberant abdomen, normal bowel sounds, soft, nontender, hepatosplenomegaly not appreciated Musculoskeletal: no cyanosis or clubbing, extremities motor strength 5/5, difficult ROM active to bilateral upper extremities secondary to rotator cuff pathology Skin: no rashes, warm and dry normal turgor Neurologic: PERRL, EOMI, accommodation nl, no face palsy, no dysarthria CN's II-XI intact bilaterally and moves all extremities Psychiatric: A+Ox3, euthymic affect Lymphatic: no cervical or axillary lymphadenopathy : deferred Results & Data Results & Data ([facility]) Vital Signs (Past 12 Hours) Vital Signs Temp Pulse Resp BP Pulse Ox 07/10/20 10:01 88 11 L 95 07/10/20 10:00 88 17 115/103 H 92 07/10/20 09:50 90 16 96 07/10/20 09:46 89 20 140/89 97 07/10/20 09:40 88 19 95 07/10/20 09:31 87 14 156/103 H 95 07/10/20 09:30 87 12 92 07/10/20 09:20 86 17 96 07/10/20 09:10 88 15 95 07/10/20 09:01 89 13 86 L 07/10/20 09:00 86 15 104/84 89 L 07/10/20 08:50 88 16 88 L 07/10/20 08:40 87 18 91 07/10/20 08:31 84 13 90 07/10/20 08:30 85 15 103/83 90 07/10/20 08:20 92 H 14 84 L 07/10/20 08:10 89 20 91 07/10/20 08:01 87 14 90 07/10/20 08:00 86 12 106/85 91 07/10/20 07:50 87 22 92 07/10/20 07:45 36.7 C 87 13 142/89 H 90 07/10/20 07:40 83 16 110/79 92 Laboratory Results Short CBC 07/10/20 07/10/20 Range/Units 07:40 07:40 WBC 10.17 (4.8-10.8) K/uL Hgb 14.0 (14.0-18.0) g/dL Hct 40.8 L (42-52) % Plt Count 220 (130-400) K/uL Potassium 3.8 (3.5-5.1) mmol/L Creatinine 1.18 (0.6-1.4) mg/dl BMP 07/10/20 07:40 Sodium 138 Potassium 3.8 Chloride 104 Carbon Dioxide 25 BUN 20 H Creatinine 1.18 Glucose 208 H Calcium 8.7 Cardiac Enzymes 07/10/20 Range/Units 07:40 Troponin I < 0.015 (0-0.045) ng/ml Liver Function 07/10/20 Range/Units 07:40 Total Bilirubin 0.4 (0.2-1) mg/dl AST 19 (15-37) U/L ALT 36 (12-78) U/L Alkaline Phosphatase 124 H (45-117) U/L Albumin 3.3 L (3.4-5.0) gm/dl Diagnostic Findings CXR: IMPRESSION: No significant change compared to the prior study. No acute process. Medications Administered Home Medications atenolol 50 mg PO QPM 05/07/18 [History Confirmed 07/10/20] atorvastatin 80 mg PO QPM 05/07/18 [History Confirmed 07/10/20] hydrochlorothiazide 50 mg PO QPM 05/07/18 [History Confirmed 07/10/20] lisinopril 20 mg PO QPM 05/07/18 [History Confirmed 07/10/20] meloxicam 15 mg PO QPM 05/07/18 [History Confirmed 07/10/20] nitroglycerin [Nitrostat] 0.4 mg SUBLINGUAL UD PRN 05/07/18 [History Confirmed 07/10/20] pantoprazole 40 mg PO QPM 05/07/18 [History Confirmed 07/10/20] ropinirole 0.25 mg PO HS 10/12/18 [History Confirmed 07/10/20] aspirin [Aspir-81] 81 mg PO HS 07/10/20 [History Confirmed 07/10/20] baclofen 10 mg PO HS PRN 07/10/20 [History Confirmed 07/10/20] hydroxyzine HCl 25 mg PO HS PRN 07/10/20 [History Confirmed 07/10/20] indomethacin 25 mg PO BIDM 07/10/20 [History Confirmed 07/10/20] potassium gluconate 595 mg PO HS 07/10/20 [History Confirmed 07/10/20] temazepam 7.5 mg PO HS PRN 07/10/20 [History Confirmed 07/10/20] trazodone 150 mg PO HS 07/10/20 [History Confirmed 07/10/20] Active Medications Morphine Sulfate (Morphine Sulfate 4 Mg/Ml 1 Ml Carp\Vial) 4 mg IV Q15M PRN PRN Reason: Pain Stop: 07/24/20 07:44 Last Admin: 07/10/20 08:15 Dose: 4 mg Documented by: ECG Rate (beats per minute): 106 Rhythm: sinus tachycardia Code Status & VTE Plan Code Status Full Code VTE Prophylaxis Plan VTE Prophylaxis will be ordered: Yes Supervising Physician Co-Signing Physician Notes Assessment/Plan I, Dr. Carlos Porter, the hospitalist physician have seen and examined the patient with physician delivery driver assistant and agree with the assessment and plan as above and will like to comment that On physical exam General: Obese male, currently not in distress, currently denies severity of chest pain which started overnight Lungs: normal respiratory effort, patient wearing nasal cannula oxygen at time of exam, posterior auscultation sounds clear Heart: regular heart rate Abdomen: truncal obesity, soft, nontender Extremities: moves all extremities Neuro/Psych: awake and alert, speaking in full sentences, gives personal and medical health history This is an obese 54 year old male history of CAD with history of GRETCHEN to RCA in 2016, HTN, HLD, SALVADOR on CPAP, gout, anxiety and insomnia who presents to ED secondary to chest pain starting at 11 PM for which patient reports he took nitro but he had incomplete relief and came to the ED for further evaluation and treatment. At time of hospitalist exam, patient does not report chest discomfort and troponins negative x 2. he affirms with me after speaking with physician delivery driver assistant that he would not want stress testing today. hospitalist team will request cardiology service consult to follow the patient. patient by Chest X ray does not appear fluid overloaded. will continue to monitor the patient on telemetry and trend the troponin and see if his symptoms from home recurs. agree with other assessment and plans as documented by physician delivery driver assistant on management of blood sugars and continue the CPAP with sleep because of history of sleep apnea.
--- NOTE | 2020-07-10 12:26 | Cardiology Consultation ---
Date of Consultation July 10, 2020 Assessment & Plan (1) Atypical chest pain: (2) Morbid obesity: (3) CAD (coronary artery disease): (4) Sleep apnea: This patient's chest pain is atypical for cardiac pain. His EKG shows no acute changes and his first set of cardiac markers despite having chest discomfort all night long is within normal limits. He will have additional cardiac markers drawn and he is admitted for observation. History of Present Illness Attending Physician: Carlos Porter MD History of Present Illness This is a 54-year-old male patient who usually follows with Dr. Delatorre through our clinic. He has a history of drug-eluting stents within the right coronary artery, dyslipidemia, morbid obesity and hypertension. He also has chronic at ypical chest pain and has been on occasion noncompliant with medical follow-up. Last evening after retiring he developed chest pressure and discomfort which he describes as lasting through the night and into the morning nonstop. He did take a sublingual nitroglycerin around 11 PM which did not really improve his symptoms. This morning when his discomfort did not improve, he called the emergency squad and was given additional sublingual nitroglycerin along with aspirin. His discomfort slowly dissipated after arrival to the hospital. He has no pain at present. His EKG shows no acute changes. His first set of cardiac markers are negative. Past medical history: 1. Chronic coronary artery disease status post drug eluting stent implantation to the right coronary artery - stable without exertional angina -chronic dyspnea reported (likely multifactorial). 2. Chronic atypical chest discomfort unrelated to exertion 3. Dyslipidemia - controlled, tolerating maximum dose atorvastatin 4. HTN - uncontrolled 5. Morbid obesity SALVADOR- Increased weight noted. 6. Excessive NSAID intake 7. +FH of CAD / [place] - father at age 57 Allergies Allergy/AdvReac Type Severity Reaction Status Date / Time No Known Allergies Allergy ` Verified 07/10/20 08:25 Home Medications Medication Instructions Recorded Confirmed Type atenolol 50 mg PO QPM 05/07/18 07/10/20 History atorvastatin 80 mg PO QPM 05/07/18 07/10/20 History hydrochlorothiazide 50 mg PO QPM 05/07/18 07/10/20 History lisinopril 20 mg PO QPM 05/07/18 07/10/20 History meloxicam 15 mg PO QPM 05/07/18 07/10/20 History nitroglycerin [Nitrostat] 0.4 mg SUBLINGUAL UD PRN 05/07/18 07/10/20 History pantoprazole 40 mg PO QPM 05/07/18 07/10/20 History ropinirole 0.25 mg PO HS 05/07/18 07/10/20 History aspirin [Aspir-81] 81 mg PO HS 07/10/20 07/10/20 History baclofen 10 mg PO HS PRN 07/10/20 07/10/20 History hydroxyzine HCl 25 mg PO HS PRN 07/10/20 07/10/20 History indomethacin 25 mg PO BIDM 07/10/20 07/10/20 History potassium gluconate 595 mg PO HS 07/10/20 07/10/20 History temazepam 7.5 mg PO HS PRN 07/10/20 07/10/20 History trazodone 150 mg PO HS 07/10/20 07/10/20 History Patient History Medical History CAD (coronary artery disease) GERD (gastroesophageal reflux disease) Gout Hyperlipidemia Morbid obesity Osteoarthritis Restless leg syndrome Sleep apnea CPAP SOB (shortness of breath) on exertion Surgical History History of anesthesia reaction BRONCHOSPASM POST EXTUBATION History of arthroscopy of right knee History of cardiac cath 1 STENT 05/2016 [facility] History of cataract surgery 09/08/18 - [facility] [place] History of vitrectomy Lt Hx of hand surgery L EFT-REVISION TIP FINGER Family History Mother Family history of diabetes mellitus Coronary heart disease, Onset Age: 63 Father Coronary heart disease, Onset Age: 57 Cancer Social History Smoking Status: Never smoker Tobacco Type: Smokeless Tobacco (Dip or Chew) Second Hand Exposure: No; Do You Dip or Chew Tobacco: No; Tobacco Cessation Education Requested by Patient: No Hx Alcohol Use: No Hx Substance Use: No Preferred Language: Moldovan Communication Ability: Effective Linoleum Tile Layer Required: No Beliefs That Will Affect Care: None Current Living Situation: Family Current Living Situation Comment: with daughter Other Information That Helps Us Care for You: No Feels Safe at Home: Yes Safety Concerns: Feels Safe At This Time Assistive Devices: CPAP Review of Systems Review of Systems: All systems reviewed & are unremarkable except as noted in HPI & below Nothing additional to add Physical Exam Physical Exam: General: no acute distress morbidly obese male patient Head: normocephalic, no masses, lesions, tenderness or abnormalities Eyes: conjunctiva are pink and non-injected, sclera clear Neck: supple, no adenopathy, no bruits, normal jugular venous pulse, no hepatojugular reflux Chest: normal shape and normal respiratory effort Lungs: clear to auscultation and percussion Cardiac Exam: - regular rate & rhythm, no murmurs gallops or rubs - normal S1, normal S2 Pulses: 2(+) throughout Abdomen: abdomen obese, soft, non-tender, no abnormal masses and no hepatosplenomegaly Musculoskeletal: no gait disturbance, no joint inflammation, no deforming arthritis Extremities: no edema and no cyanosis Neuro: grossly normal exam Results & Data ([facility]) Vital Signs (Past 12 Hours) Vital Signs Temp Pulse Resp BP Pulse Ox 07/10/20 11:31 95 07/10/20 11:30 138/115 H 90 07/10/20 11:20 95 07/10/20 11:10 87 95 07/10/20 11:01 87 12 93 07/10/20 11:00 87 12 136/97 93 07/10/20 10:50 90 21 96 07/10/20 10:40 90 9 L 95 07/10/20 10:31 89 13 95 07/10/20 10:30 86 13 122/103 H 95 07/10/20 10:20 89 14 95 07/10/20 10:10 87 14 96 07/10/20 10:01 88 11 L 95 07/10/20 10:00 88 17 115/103 H 92 07/10/20 09:50 90 16 96 07/10/20 09:46 89 20 140/89 97 07/10/20 09:40 88 19 95 07/10/20 09:31 87 14 156/103 H 95 07/10/20 09:30 87 12 92 07/10/20 09:20 86 17 96 07/10/20 09:10 88 15 95 07/10/20 09:01 89 13 86 L 07/10/20 09:00 86 15 104/84 89 L 07/10/20 08:50 88 16 88 L 07/10/20 08:40 87 18 91 07/10/20 08:31 84 13 90 07/10/20 08:30 85 15 103/83 89 L 07/10/20 08:20 92 H 14 84 L 07/10/20 08:10 89 20 91 07/10/20 08:01 87 14 90 07/10/20 08:00 86 12 106/85 91 07/10/20 07:50 87 22 92 07/10/20 07:45 36.7 C 87 13 142/89 H 90 07/10/20 07:40 83 16 110/79 92 Laboratory Results Laboratory Results - last 24 hr 07/10/20 07/10/20 07/10/20 07:40 07:40 07:40 WBC 10.17 RBC 4.53 L Hgb 14.0 Hct 40.8 L MCV 90.1 MCH 30.9 MCHC 34.3 RDW Std Deviation 42.3 RDW Coeff of Ghada 12.9 Plt Count 220 MPV 9.9 Immature Gran % (Auto) 0.1 Neut % (Auto) 73.9 Lymph % (Auto) 17.8 [place] % (Auto) 6.6 Eos % (Auto) 1.3 Baso % (Auto) 0.3 Neut # (Auto) 7.52 H Lymph # (Auto) 1.81 [place] # (Auto) 0.67 H Eos # (Auto) 0.13 Baso # (Auto) 0.03 Immature Gran # (Auto) 0.01 PT 10.3 INR 1.0 APTT 27.2 PTT Ratio 1.0 Sodium 138 Potassium 3.8 Chloride 104 Carbon Dioxide 25 Anion Gap 8.0 BUN 20 H Creatinine 1.18 Est Cr Clr Drug Dosing 123.8 Est GFR ( Amer) 79.5 Est GFR (Non-Af Amer) 68.6 BUN/Creatinine Ratio 17.0 Glucose 208 H Calcium 8.7 Magnesium Total Bilirubin 0.4 AST 19 ALT 36 Alkaline Phosphatase 124 H Troponin I < 0.015 Total Protein 7.1 Albumin 3.3 L Globulin 3.8 Albumin/Globulin Ratio 0.9 Lipase 102 SARS-CoV-2 Ag (Rapid) 07/10/20 07/10/20 07:40 09:26 WBC RBC Hgb Hct MCV MCH MCHC RDW Std Deviation RDW Coeff of Ghada Plt Count MPV Immature Gran % (Auto) Neut % (Auto) Lymph % (Auto) [place] % (Auto) Eos % (Auto) Baso % (Auto) Neut # (Auto) Lymph # (Auto) [place] # (Auto) Eos # (Auto) Baso # (Auto) Immature Gran # (Auto) PT INR APTT PTT Ratio Sodium Potassium Chloride Carbon Dioxide Anion Gap BUN Creatinine Est Cr Clr Drug Dosing Est GFR ( Amer) Est GFR (Non-Af Amer) BUN/Creatinine Ratio Glucose Calcium Magnesium 2.0 Total Bilirubin AST ALT Alkaline Phosphatase Troponin I Total Protein Albumin Globulin Albumin/Globulin Ratio Lipase SARS-CoV-2 Ag (Rapid) Negative Medications Administered Current Inpatient Medications Morphine Sulfate (Morphine Sulfate 4 Mg/Ml 1 Ml Carp\Vial) 4 mg IV Q15M PRN PRN Reason: Pain Stop: 07/24/20 07:44 Last Admin: 07/10/20 08:15 Dose: 4 mg Documented by:
[2020-07-10] MEDS ORDERED: GLUCOSE 40% GEL 15 GM TUBE PO PRN (13:21)
[2020-07-10] MEDS ORDERED: POLYETHYLENE (MIRALAX) 17 GM PACK PO PRN (13:21)
[2020-07-10] MEDS ORDERED: hydrOXYzine HCl 25 MG TAB PO PRN (13:21)
[2020-07-10] MEDS ORDERED: MAGNESIUM HYDROXIDE SUSP 30 ML UDC PO PRN (13:21)
[2020-07-10] MEDS ORDERED: NITROGLYCERIN SL 0.4 MG/TAB TAB SL PRN (13:21)
[2020-07-10] MEDS ORDERED: GLUCOSE 10 TABS/TUBE PO PRN (13:21)
[2020-07-10] MEDS ORDERED: DEXTROSE 50% 50 ML SYRINGE IV PRN (13:21)
[2020-07-10] MEDS ORDERED: ALUMINUM/MAGNESIUM SUSP 30 ML UDC PO PRN (13:21)
[2020-07-10] MEDS ORDERED: CARBOHYDRATES FOR HYPOGLYCEMIA PO PRN (13:21)
[2020-07-10] MEDS ORDERED: BACLOFEN 10 MG TAB PO PRN (13:21)
[2020-07-10] MEDS ORDERED: GLUCAGON FOR INJ 1 MG VIAL SQ PRN (13:21)
[2020-07-10] MEDS: INSULIN ASPART 100 UNITS/ML 3 ML PEN SC SCH ×3 (15:16→21:01)
[2020-07-10] MEDS: ACETAMINOPHEN 325 MG TAB PO PRN (19:53)
[2020-07-10] MEDS ORDERED: TEMAZEPAM 7.5 MG CAPSULE PO PRN (19:59)
[2020-07-10] MEDS ORDERED: ASPIRIN 81 MG ECTAB PO SCH (21:00)
[2020-07-10] MEDS ORDERED: lisinopril 20 MG TAB PO SCH (21:00)
[2020-07-10] MEDS ORDERED: PANTOprazole 40 MG TAB PO SCH (21:00)
[2020-07-10] MEDS ORDERED: ATORVASTATIN 40 MG TAB PO SCH (21:00)
[2020-07-10] MEDS ORDERED: rOPINIRole HCL 0.25 MG TABLET PO SCH (21:00)
[2020-07-10] MEDS ORDERED: traZODone HCL 50 MG TAB PO SCH (21:00)
[2020-07-10] MEDS ORDERED: POTASSIUM CHLORIDE 10 MEQ TABCR PO SCH (21:00)
[2020-07-10] MEDS ORDERED: NON-FORMULARY MEDICATION (Potassium Gluconate 595 mg (99 mg) Tablet) PO SCH (21:00)
[2020-07-10] MEDS ORDERED: hydroCHLOROthiazide 25 MG TAB PO SCH (21:00)
[2020-07-10] MEDS ORDERED: MELOXICAM 7.5 MG TAB PO SCH (21:00)
[2020-07-10] MEDS ORDERED: ATENOLOL 50 MG TABLET PO SCH (21:00)
[2020-07-10] MEDS: INSULIN GLARGINE SOLOSTAR 100 UNITS/ML 3 ML PEN SC SCH (21:01)
[2020-07-10] MEDS: ENOXAPARIN INJ 40 MG/0.4 ML SYR SQ SCH (22:01)
[2020-07-11 05:42] LABS: Estimated Average Glucose 128 mg/dl; Hemoglobin A1C 6.1 % (4.5-5.6)
--- NOTE | 2020-07-11 05:47 | Electrocardiogram Report ---
Test Reason : Blood Pressure : / mmHG Vent. Rate : 102 BPM Atrial Rate : 102 BPM P-R Int : 178 ms QRS Dur : 084 ms QT Int : 380 ms P-R-T Axes : 039 -11 049 degrees QTc Int : 495 ms Sinus tachycardia Cannot rule out Inferior infarct , age undetermined Abnormal ECG When compared with ECG of 10-MAY-2018 12:54, Vent. rate has increased BY 45 BPM Minimal criteria for Inferior infarct are now Present T wave inversion no longer evident in Inferior leads QT has lengthened Confirmed by Scar Cameron ([id number]) on 07/11/2020 5:47:17 AM Referred By: REFERRED SELF Confirmed By:Scar Cameron
--- NOTE | 2020-07-11 05:58 | Electrocardiogram Report ---
Test Reason : Blood Pressure : / mmHG Vent. Rate : 086 BPM Atrial Rate : 086 BPM P-R Int : 198 ms QRS Dur : 072 ms QT Int : 372 ms P-R-T Axes : 017 013 042 degrees QTc Int : 445 ms Normal sinus rhythm Normal ECG When compared with ECG of 10-JUL-2020 07:38, Minimal criteria for Inferior infarct are no longer Present QT has shortened Confirmed by Scar Cameron ([id number]) on 07/11/2020 5:58:04 AM Referred By: REFERRED SELF Confirmed By:Scar Cameron
[2020-07-11] MEDS: INSULIN GLARGINE SOLOSTAR 100 UNITS/ML 3 ML PEN SC SCH (07:51)
[2020-07-11] MEDS: INSULIN ASPART 100 UNITS/ML 3 ML PEN SC SCH ×2 (07:51→12:12)
[2020-07-11 08:04] LABS: Hematocrit (blood only) 40.2 % (42-52); Hemoglobin 13.5 g/dL (14.0-18.0); Mean Corpuscular Hemoglobin 30.8 pg (25-34); Mean Corpuscular Hgb Conc 33.6 g/dL (32-36); Mean Corpuscular Volume 91.6 fL (80-100); Mean Platelet Volume 9.9 fL (7.4-10.4); Platelet Count 210 K/uL (130-400); RDW Standard Deviation 43.7 fL (36.4-46.3); Red Blood Count 4.39 M/uL (4.7-6.1); White Blood Count 7.68 K/uL (4.8-10.8)
[2020-07-11 08:52] LABS: BUN Creatinine Ratio 23.2 (10-20); Calcium 8.9 mg/dl (8.5-10.1); Creatinine Clr Calc Pharmacy 122.7 ml/min; Est GFR (African American) 78.7; Est GFR (Non-African American) 67.9; Potassium 4.4 mmol/L (3.5-5.1)
[2020-07-11] MEDS ORDERED: hydroCHLOROthiazide 25 MG TAB PO SCH (09:00)
[2020-07-11] MEDS: ENOXAPARIN INJ 40 MG/0.4 ML SYR SQ SCH (12:12)
--- NOTE | 2020-07-11 13:00 | Cardiology Progress Note ---
Date of Service July 11, 2020 Assessment & Plan (1) Atypical chest pain: (2) Morbid obesity: (3) CAD (coronary artery disease): (4) Sleep apnea: The patient's troponins are negative and he has had no additional chest pain. His echocardiogram because of his body habitus has poor acoustic windows. I would recommend that we discharge him home to outpatient follow-up. As mentioned he does have chronic shoulder pain and has seen an orthopedist in the past who has recommended an MRI. He is asking if he could have an MRI scan completed before he leaves the hospital. I indicated to him that that may not be possible without an order from his orthopedic physician. Admission and Anticipated Discharge Date Admission Date: July 10, 2020 Subjective The patient has had no chest pain since admission. He is anxious about going home however, he does mention that he has chronic shoulder pain and has seen an orthopedic physician. Review of Systems Review of Systems: All systems reviewed & are unremarkable except as noted in Subjective Physical Exam Physical Exam: General: no acute distress, morbidly obese Head: normocephalic, no masses, lesions, tenderness or abnormalities Eyes: conjunctiva are pink and non-injected, sclera clear Neck: supple, no adenopathy, no bruits, normal jugular venous pulse, no hepatojugular reflux Chest: normal shape and normal respiratory effort Lungs: clear to auscultation and percussion Cardiac Exam: - regular rate & rhythm, no murmurs gallops or rubs - normal S1, normal S2 Pulses: 2(+) throughout Abdomen: Obese, abdomen soft, non-tender, no abnormal masses and no hepatosplenomegaly Musculoskeletal: no gait disturbance, no joint inflammation, no deforming arthritis Extremities: no edema and no cyanosis Neuro: grossly normal exam Results & Data ([facility]) Vital Signs (Past 12 Hours) Vital Signs Temp Pulse Pulse Resp BP BP Pulse Ox 07/11/20 12:10 36.5 C 63 19 133/82 93 07/11/20 08:14 36.7 C 65 19 127/75 93 07/11/20 08:00 61 07/11/20 05:18 60 16 96 07/11/20 03:52 36.6 C 59 L 16 122/80 93 Laboratory Results Laboratory Results - last 24 hr 07/10/20 07/10/20 07/10/20 13:27 13:48 16:39 WBC RBC Hgb Hct MCV MCH MCHC RDW Std Deviation RDW Coeff of Ghada Plt Count MPV Sodium Potassium Chloride Carbon Dioxide Anion Gap BUN Creatinine Est Cr Clr Drug Dosing Est GFR ( Amer) Est GFR (Non-Af Amer) BUN/Creatinine Ratio Glucose POC Glucose 117 H 105 H Estimat Average Glucose Hemoglobin A1c Calcium Troponin I 0.023 Triglycerides Cholesterol LDL Cholesterol, Calc VLDL Cholesterol, Calc HDL Cholesterol Cholesterol/HDL Ratio 07/10/20 07/10/20 07/10/20 19:14 19:14 20:29 WBC RBC Hgb Hct MCV MCH MCHC RDW Std Deviation RDW Coeff of Ghada Plt Count MPV Sodium Potassium Chloride Carbon Dioxide Anion Gap BUN Creatinine Est Cr Clr Drug Dosing Est GFR ( Amer) Est GFR (Non-Af Amer) BUN/Creatinine Ratio Glucose POC Glucose 115 H Estimat Average Glucose 128 Hemoglobin A1c 6.1 H Calcium Troponin I < 0.015 Triglycerides Cholesterol LDL Cholesterol, Calc VLDL Cholesterol, Calc HDL Cholesterol Cholesterol/HDL Ratio 07/11/20 07/11/20 07/11/20 05:44 07:20 07:37 WBC 7.68 RBC 4.39 L Hgb 13.5 L Hct 40.2 L MCV 91.6 MCH 30.8 MCHC 33.6 RDW Std Deviation 43.7 RDW Coeff of Ghada 13.0 Plt Count 210 MPV 9.9 Sodium Potassium Chloride Carbon Dioxide Anion Gap BUN Creatinine Est Cr Clr Drug Dosing Est GFR ( Amer) Est GFR (Non-Af Amer) BUN/Creatinine Ratio Glucose POC Glucose 112 H 104 H Estimat Average Glucose Hemoglobin A1c Calcium Troponin I Triglycerides Cholesterol LDL Cholesterol, Calc VLDL Cholesterol, Calc HDL Cholesterol Cholesterol/HDL Ratio 07/11/20 07/11/20 07:37 11:29 WBC RBC Hgb Hct MCV MCH MCHC RDW Std Deviation RDW Coeff of Ghada Plt Count MPV Sodium 140 Potassium 4.4 D Chloride 105 Carbon Dioxide 30 Anion Gap 5.0 BUN 28 H Creatinine 1.19 Est Cr Clr Drug Dosing 122.7 Est GFR ( Amer) 78.7 Est GFR (Non-Af Amer) 67.9 BUN/Creatinine Ratio 23.2 H Glucose 108 H POC Glucose 118 H Estimat Average Glucose Hemoglobin A1c Calcium 8.9 Troponin I Triglycerides 184 H Cholesterol 158 LDL Cholesterol, Calc 57 VLDL Cholesterol, Calc 37 HDL Cholesterol 64 Cholesterol/HDL Ratio 3 Medications Administered Current Inpatient Medications Acetaminophen (Acetaminophen 325 Mg Tab) 650 mg PO Q4H PRN PRN Reason: Pain or Fever Stop: 08/09/20 13:20 Last Admin: 07/10/20 19:53 Dose: 650 mg Documented by: Al Hydrox/Mg Hydrox/Simethicone (Aluminum/Magnesium Susp 30 Ml Udc) 15 ml PO Q4H PRN PRN Reason: Dyspepsia Stop: 08/09/20 13:20 Aspirin (Aspirin 81 Mg Ectab) 81 mg PO HS HANDY Stop: 08/09/20 20:59 Last Admin: 07/10/20 18:10 Dose: 81 mg Documented by: Atenolol (Atenolol 50 Mg Tablet) 50 mg PO QPM HANDY Stop: 08/09/20 20:59 Last Admin: 07/10/20 18:10 Dose: 50 mg Documented by: Atorvastatin Calcium (Atorvastatin 40 Mg Tab) 80 mg PO QPM HANDY Stop: 08/09/20 20:59 Last Admin: 07/10/20 18:10 Dose: 80 mg Documented by: Baclofen (Baclofen 10 Mg Tab) 10 mg PO HS PRN PRN Reason: Muscle Spasm Stop: 08/09/20 13:20 Last Admin: 07/10/20 22:03 Dose: 10 mg Documented by: Dextrose (Dextrose 50% 50 Ml Syringe) 25 - 50 ml IV UD PRN; Protocol PRN Reason: Hypoglycemia Protocol Stop: 08/09/20 13:20 Enoxaparin Sodium (Enoxaparin Inj 40 Mg/0.4 Ml Syr) 40 mg SQ Q12H [facility] Stop: 08/09/20 21:59 Last Admin: 07/11/20 12:12 Dose: 40 mg Documented by: Glucagon (Glucagon For Inj 1 Mg Vial) 1 mg SQ UD PRN; Protocol PRN Reason: Hypoglycemia Protocol Stop: 08/09/20 13:20 Glucose (Glucose 10 Tabs/Tube) 4 - 8 tabs PO UD PRN; Protocol PRN Reason: Hypoglycemia Protocol Stop: 08/09/20 13:20 Glucose (Glucose 40% Gel 15 Gm Tube) 15 - 30 gm PO UD PRN; Protocol PRN Reason: Hypoglycemia Protocol Stop: 08/09/20 13:20 Hydrochlorothiazide (Hydrochlorothiazide 25 Mg Tab) 50 mg PO QAM [facility] Stop: 08/10/20 08:59 Last Admin: 07/11/20 08:36 Dose: 50 mg Documented by: Hydroxyzine HCl (Hydroxyzine Hcl 25 Mg Tab) 25 mg PO HS PRN PRN Reason: anxiety/sleep Stop: 08/09/20 13:20 Insulin Aspart (Insulin Aspart 100 Units/Ml 3 Ml Pen) 0 units SC ACHS HANDY Stop: 08/09/20 13:44 Last Admin: 07/11/20 12:12 Dose: 10 units Documented by: Insulin Glargine (Insulin Glargine Solostar 100 Units/Ml 3 Ml Pen) 0 - 10 units SC BID HANDY Stop: 08/09/20 20:59 Last Admin: 07/11/20 07:51 Dose: Not Given Documented by: Lisinopril (Lisinopril 20 Mg Tab) 20 mg PO QPM HANDY Stop: 08/09/20 20:59 Last Admin: 07/10/20 18:10 Dose: 20 mg Documented by: Magnesium Hydroxide (Magnesium Hydroxide Susp 30 Ml Udc) 30 ml PO Q12H PRN PRN Reason: Constipation Stop: 08/09/20 13:20 Meloxicam (Meloxicam 7.5 Mg Tab) 15 mg PO QPM HANDY Stop: 08/09/20 20:59 Last Admin: 07/10/20 18:09 Dose: 15 mg Documented by: Miscellaneous (Carbohydrates For Hypoglycemia ) 15 - 30 gm PO UD PRN PRN Reason: Hypoglycemia Protocol Stop: 08/09/20 13:20 Nitroglycerin (Nitroglycerin Sl 0.4 Mg/Tab Tab) 0.4 mg SL UD PRN PRN Reason: Chest Pain Stop: 08/09/20 13:20 Pantoprazole Sodium (Pantoprazole 40 Mg Tab) 40 mg PO QPM HANDY Stop: 08/09/20 20:59 Last Admin: 07/10/20 18:09 Dose: 40 mg Documented by: Polyethylene Glycol (Polyethylene (Miralax) 17 Gm Pack) 17 gm PO DAILY PRN PRN Reason: Constipation Stop: 08/09/20 13:20 Potassium Chloride (Potassium Chloride 10 Meq Tabcr) 10 meq PO HS HANDY Stop: 08/09/20 20:59 Last Admin: 07/10/20 18:11 Dose: 10 meq Documented by: Ropinirole HCl (Ropinirole Hcl 0.25 Mg Tablet) 0.25 mg PO HS HANDY Stop: 08/09/20 20:59 Last Admin: 07/10/20 22:01 Dose: 0.25 mg Documented by: Temazepam (Temazepam 7.5 Mg Capsule) 7.5 mg PO HSZ PRN PRN Reason: Insomnia Stop: 08/09/20 19:58 Last Admin: 07/10/20 22:01 Dose: 7.5 mg Documented by: Trazodone HCl (Trazodone Hcl 50 Mg Tab) 150 mg PO HS HANDY Stop: 08/09/20 20:59 Last Admin: 07/10/20 22:01 Dose: 150 mg Documented by:
[2020-07-11] MEDS: ACETAMINOPHEN 325 MG TAB PO PRN (13:44)
--- NOTE | 2020-07-11 13:49 | Hospitalist Progress Note ---
Date of Service July 11, 2020 Assessment & Plan (1) Atypical chest pain: (2) CAD (coronary artery disease): per admitting service notes: This is a 54-year-old male who has significant past medical history of CAD with history of GRETCHEN to RCA in 2016, HTN, HLD, SALVADOR on CPAP, gout, anxiety and insomnia who presents to ED secondary to chest pain starting at 11 PM. In ED patient remained hemodynamically stable. His CBC and CMP was generally unremarkable except hyperglycemia at 208. SARS -CoV-2 negative. Chest x-ray revealed stable pulmonary nausea but no acute cardiopulmonary normality. EKG unchanged except for lengthening of QTC at 495 MS. In ED he received IV Zofran and morphine. 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 Trevino upon discharge Pt was seen and examined in collaboration with Dr. Porter, please see addendum Admission and Anticipated Discharge Date Admission Date: July 10, 2020 Subjective ff up for chest pain seen resting in bed, comfortable, sitting up not in distress chest pain free denies dyspnea, palpitations, dizziness reports worsening of chronic R shoulder pain from rotator cuff tear no other symptoms states he is ready for discharge today Review of Systems Review of Systems: All systems reviewed & are unremarkable except as noted in Subjective Physical Exam Physical Exam: General- oriented x 3, not in distress, speaks in sentences with no effort or accessory muscle use Eyes- anicteric Neck- no JVD Lungs- clear breath sounds bilaterally, no rales/wheezes Heart- normal rate, regular rhythm; no murmurs Abdomen- normal bowel sounds, nondistended, soft, nontender Extremities- no pretibial edema, no calf tenderness right shoulder- mild edema and tenderness, no erythema/warmth poor ROM due to pain Neuro- alert, oriented x 3; no gross focal neurologic deficits Skin- warm & dry Results & Data Results & Data ([facility]) Vital Signs (Past 12 Hours) Vital Signs Temp Pulse Pulse Resp BP BP Pulse Ox 07/11/20 12:10 36.5 C 63 19 133/82 93 07/11/20 08:14 36.7 C 65 19 127/75 93 07/11/20 08:00 61 07/11/20 05:18 60 16 96 07/11/20 03:52 36.6 C 59 L 16 122/80 93 Laboratory Results Laboratory Results - last 24 hr 07/10/20 07/10/20 07/10/20 13:48 16:39 19:14 WBC RBC Hgb Hct MCV MCH MCHC RDW Std Deviation RDW Coeff of Ghada Plt Count MPV Sodium Potassium Chloride Carbon Dioxide Anion Gap BUN Creatinine Est Cr Clr Drug Dosing Est GFR ( Amer) Est GFR (Non-Af Amer) BUN/Creatinine Ratio Glucose POC Glucose 105 H Estimat Average Glucose Hemoglobin A1c Calcium Troponin I 0.023 < 0.015 Triglycerides Cholesterol LDL Cholesterol, Calc VLDL Cholesterol, Calc HDL Cholesterol Cholesterol/HDL Ratio 07/10/20 07/10/20 07/11/20 19:14 20:29 05:44 WBC RBC Hgb Hct MCV MCH MCHC RDW Std Deviation RDW Coeff of Ghada Plt Count MPV Sodium Potassium Chloride Carbon Dioxide Anion Gap BUN Creatinine Est Cr Clr Drug Dosing Est GFR ( Amer) Est GFR (Non-Af Amer) BUN/Creatinine Ratio Glucose POC Glucose 115 H 112 H Estimat Average Glucose 128 Hemoglobin A1c 6.1 H Calcium Troponin I Triglycerides Cholesterol LDL Cholesterol, Calc VLDL Cholesterol, Calc HDL Cholesterol Cholesterol/HDL Ratio 07/11/20 07/11/20 07/11/20 07:20 07:37 07:37 WBC 7.68 RBC 4.39 L Hgb 13.5 L Hct 40.2 L MCV 91.6 MCH 30.8 MCHC 33.6 RDW Std Deviation 43.7 RDW Coeff of Ghada 13.0 Plt Count 210 MPV 9.9 Sodium 140 Potassium 4.4 D Chloride 105 Carbon Dioxide 30 Anion Gap 5.0 BUN 28 H Creatinine 1.19 Est Cr Clr Drug Dosing 122.7 Est GFR ( Amer) 78.7 Est GFR (Non-Af Amer) 67.9 BUN/Creatinine Ratio 23.2 H Glucose 108 H POC Glucose 104 H Estimat Average Glucose Hemoglobin A1c Calcium 8.9 Troponin I Triglycerides 184 H Cholesterol 158 LDL Cholesterol, Calc 57 VLDL Cholesterol, Calc 37 HDL Cholesterol 64 Cholesterol/HDL Ratio 3 07/11/ 11:29 WBC RBC Hgb Hct MCV MCH MCHC RDW Std Deviation RDW Coeff of Ghada Plt Count MPV Sodium Potassium Chloride Carbon Dioxide Anion Gap BUN Creatinine Est Cr Clr Drug Dosing Est GFR ( Amer) Est GFR (Non-Af Amer) BUN/Creatinine Ratio Glucose POC Glucose 118 H Estimat Average Glucose Hemoglobin A1c Calcium Troponin I Triglycerides Cholesterol LDL Cholesterol, Calc VLDL Cholesterol, Calc HDL Cholesterol Cholesterol/HDL Ratio
--- NOTE | 2020-07-11 15:03 | Magnetic Resonance Report ---
MRI OF THE RIGHT SHOULDER CLINICAL HISTORY: Right shoulder pain. Decreased range of motion. COMPARISON STUDY: No priors. TECHNIQUE: MRI of the right shoulder was initiated. An axial fat saturated proton density. Sequences obtained. The patient would not tolerate further imaging. FINDINGS: The examination is not diagnostic for evaluation of the shoulder joint. No significant marian ow abnormality is identified in the right shoulder. Degenerative change is seen at the acromioclavicu lar joint with subchondral cyst formation in the clavicular head. Mild cystic degenerative change is also seen in the glenoid. The long head of the biceps tendon is intact and located within the bicipit al groove. Subacromial and subdeltoid bursal fluid suggests full thickness rotator cuff injury. A ful l-thickness tear of supraspinatus is questioned on image #8. The regional musculature is normal in bu lk. IMPRESSION: 1. Nondiagnostic examination of the shoulder joint. The patient only tolerated a single sequence of i maging. 2. No acute bony abnormality is identified. 3. Suspect a full-thickness tear of the supraspinatus tendon. This is not diagnostically evaluated. Electronically signed by: Lei Lopez M.D. 07/11/2020 3:02 PM
--- NOTE | 2020-07-11 22:44 | Discharge Summary ---
Date of Service July 11, 2020 Admission HPI Per Admitting Provider This is a 54-year-old male who has significant past medical history of CAD with history of GRETCHEN to RCA in 2016, HTN, HLD, SALVADOR on CPAP, gout, anxiety and insomnia who presents to ED secondary to chest pain starting at 11 PM. He states he was getting ready to fall asleep when he developed substernal chest pain. Pain described as a sharp ache. It mostly stayed centralized but did occasionally radiate to right and left precordium. Pain was constant and continued to worsen throughout night. He tried taking 1 nitroglycerin at approximately 11 PM with minimal improvement. He did not sleep all night as pain persisted. He was concerned it may be related to his heart. Feels similar to prior presentation which required cardiac catheterization. Symptoms were associated with shortness of breath, nausea and sweating. He took 2 nitro at approximately 5 AM and EMS was summoned. His chest pain resolved. He also received full dose aspirin. He has not had anything to eat or drink yet this morning. Last meal was chicken soup at approximately 11 PM. Chest pain was present prior to this. He takes all medications and evening, last dose last evening. He denies any recent illness, fever, chills, sweats, lightheadedness, dizziness, syncope, palpitations, cough, hemoptysis, URI symptoms, emesis, abdominal pain, change in bowel or urinary habits. He has been compliant with medications as well as CPAP. He is very drowsy right now secondary to not sleeping last evening due to pain. He denies prior use or need for nitroglycerin post stent. In ED patient remained hemodynamically stable. His CBC and CMP was generally unremarkable except hyperglycemia at 208. SARS-CoV-2 negative. Chest x-ray revealed stable pulmonary nausea but no acute cardiopulmonary normality. EKG unchanged except for lengthening of QTC at 495 MS. In ED he received IV Zofran and morphine. Admission Exam Per Admitting Provider Constitutional: Morbidly obese, male, drowsy, arouses to verbal stimulation, vitals as above, NAD, sitting up in bed, answers questions appropriately Head: Normocephalic, Atraumatic Eyes: PERRL, conjunctivae normal, anicteric sclerae ENMT: external ear and nose normal, oropharynx normal Neck: trachea midline, no thyromegaly normal visual inspection Respiratory: normal respiratory effort, lungs clear to auscultation, no wheeze, rales, rhonchi. Normal insp/exp effort, no accessory muscle use Cardiovascular: RRR, 1/6 LIANA noted LUSB, bilateral obese lower extremities, no zelalem edema, negative erythema, warmth negative Homans Vessels: no JVD or carotid bruit Chest: normal inspection of chest Abdomen: Protuberant abdomen, normal bowel sounds, soft, nontender, hepatosplenomegaly not appreciated Musculoskeletal: no cyanosis or clubbing, extremities motor strength 5/5, difficult ROM active to bilateral upper extremities secondary to rotator cuff pathology Skin: no rashes, warm and dry normal turgor Neurologic: PERRL, EOMI, accommodation nl, no face palsy, no dysarthria CN's II-XI intact bilaterally and moves all extremities Psychiatric: A+Ox3, euthymic affect Lymphatic: no cervical or axillary lymphadenopathy : deferred Principal Diagnosis Atypical chest pain Discharge Exam General- oriented x 3, not in distress, speaks in sentences with no effort or accessory muscle use Eyes- anicteric Neck- no JVD Lungs- clear breath sounds bilaterally, no rales/wheezes Heart- normal rate, regular rhythm; no murmurs Abdomen- normal bowel sounds, nondistended, soft, nontender Extremities- no pretibial edema, no calf tenderness right shoulder- mild edema and tenderness, no erythema/warmth poor ROM due to pain Neuro- alert, oriented x 3; no gross focal neurologic deficits Skin- warm & dry Discharge Data Allergies Allergy/AdvReac Type Severity Reaction Status Date / Time No Known Allergies Allergy ` Verified 07/10/20 08:25 Consultations 07/10/20 09:07 ED Decision to Admit Stat 07/10/20 09:22 Consult Cardiology Routine Ordered Studies 07/10/2020 Chest x-ray: FINDINGS: Stable 7 mm nodule within the right midlung zone. Therefore, this is likely benign. There are low lung volumes. No focal lung consolidations to suggest pneumonia. No evidence for pulmonary edema. No pleural effusions. No pneumothorax. IMPRESSION: No significant change compared to the prior study. No acute process. 07/11/20 13:06 MR shoulder RT wo con Urgent FINDINGS: The examination is not diagnostic for evaluation of the shoulder joint. No significant marrow abnormality is identified in the right shoulder. Degenerative change is seen at the acromioclavicular joint with subchondral cyst formation in the clavicular head. Mild cystic degenerative change is also seen in the glenoid. The long head of the biceps tendon is intact and located within the bicipital groove. Subacromial and subdeltoid bursal fluid suggests full thickness rotator cuff injury. A full-thickness tear of supraspinatus is questioned on image #8. The regional musculature is normal in bulk. IMPRESSION: 1. Nondiagnostic examination of the shoulder joint. The patient only tolerated a single sequence of imaging. 2. No acute bony abnormality is identified. 3. Suspect a full-thickness tear of the supraspinatus tendon. This is not diagnostically evaluated. Hospital Course (1) Atypical chest pain: (2) CAD (coronary artery disease): per admitting service notes: This is a 54-year-old male who has significant past medical history of CAD with history of GRETCHEN to RCA in 2016, HTN, HLD, SALVADOR on CPAP, gout, anxiety and insomnia who presents to ED secondary to chest pain starting at 11 PM. In ED patient remained hemodynamically stable. His CBC and CMP was generally unremarkable except hyperglycemia at 208. SARS-CoV-2 negative. Chest x-ray revealed stable pulmonary nausea but no acute cardiopulmonary normality. EKG unchanged except for lengthening of QTC at 495 MS. In ED he received IV Zofran and morphine. 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 Therefore, this is likely benign. There are low lung volumes. No focal lung consolidations to suggest pneumonia. No evidence for pulmonary edema. No pleural effusions. No pneumothorax. IMPRESSION: No significant change compared to the prior study. No acute process. --Follow-up as an outpatient (10) DVT prophylaxis: Lovenox 40mg SQ Q12h Disposition: d/c home ff up with PCP in 1 week Follow up: PCP Dr. Trevino upon discharge Pt was seen and examined in collaboration with Dr. Porter, please see addendum Total Time Total Time Spent Total Time Spent (In Minutes): 40 minutes Discharge Plan Discharge Items Patient Disposition: Home - Self-Care Reason For Visit: CHEST PAIN,HX OF CAD Discharge Diagnosis: CHEST PAIN, ACUTE CORONARY SYNDROME RULED OUT Condition on Discharge: Good Activity: As commented below Activity Comment: GRADUALLY TOLERATED Lifting: Wait until after follow-up appointment Driving/Machine Use: NO DRIVING IF YOU ARE HAVING SIGNIFICANT PAIN AND LIMITED MOTION SHOULDE Non-emergency contact: Primary Care Provider Call non-emergency contact if: you have any medication questions, your symptoms worsen, your pain is not controlled, your pain is worsening, your pain is unusual for you, your pain is concerning for you and you have a fever Follow-up/Referrals: Suresh Trevino DO [Primary Care Provider] - 07/17/20 12:00 pm (Date & Time 07/17/2020 12:00 PM Provider Suresh Trevino DO Department [facility] ) Diet: Carb Consistent or DM2, Heart Healthy and Low Sodium (2gm) Addtl Attending Provider Instructions: RESUME YOUR USUAL MEDICATIONS. CALL PRIMARY CARE PHYSICIAN OR RETURN TO THE ER IF WITH WORSENING OF SYMPTOMS. FOLLOW UP WITH PRIMARY CARE PHYSICIAN NEXT WEEK OUTLINED ABOVE. FOLLOW UP WITH ORTHOPEDIC CLINIC SCHEDULED. Pending Studies at Discharge: No Stand-Alone Forms: My [employer] Mail, Smoking Cessation Medications and DC Order Prescriptions: Continued atorvastatin 80 mg Tablet 80 mg PO QPM RF: 0 meloxicam 15 mg Tablet 15 mg PO QPM RF: 0 lisinopril 20 mg Tablet 20 mg PO QPM RF: 0 atenolol 50 mg Tablet 50 mg PO QPM RF: 0 pantoprazole 40 mg Tablet,Delayed Release (Dr/Ec) 40 mg PO QPM RF: 0 nitroglycerin [Nitrostat] 0.4 mg Tablet, Sublingual 0.4 mg Sublingual UD PRN (Reason: Pain) RF: 0 hydrochlorothiazide 25 mg Tablet 50 mg PO QPM RF: 0 ropinirole 0.25 mg Tablet 0.25 mg PO HS RF: 0 aspirin 81 mg Tablet,Delayed Release (Dr/Ec) 81 mg PO HS RF: 0 baclofen 10 mg tablet 10 mg PO HS PRN (Reason: Muscle Spasm) RF: 0 potassium gluconate 595 mg (99 mg) Tablet 595 mg PO HS RF: 0 indomethacin 25 mg capsule 25 mg PO BIDM RF: 0 temazepam 7.5 mg capsule 7.5 mg PO HS PRN (Reason: Sleep) RF: 0 trazodone 150 mg Tablet 150 mg PO HS RF: 0 hydroxyzine HCl 25 mg tablet 25 mg PO HS PRN (Reason: anxiety/sleep) RF: 0 Discharge Orders: Discharge Order (Routine); Ordered 07/11/20 Ordered By: Gurdeep King/Other Patient Handouts: DASH Plan Eat Heart Healthy Food, Eating Heart- Healthy Foods Admission Data Admit Date/Time: 07/10/20 09:22 Attending Provider: Gurdeep Vee Admit Provider: Carlos Porter Primary Care Provider: Suresh Trevino Other Providers: Shahid Head ; Carlos Porter Other Interventions: Discharge Summary Assessment (RN) Last Done: 07/11/20 15:46
== END 2020-07-11 16:40 | disposition home or self-care (01) ==
LOC: EDINP 07:33 → ED 07:33 → EDINP 09:22 → SUATTDRO 09:22 → 2S 13:01
DX: Z79.899 Other long term (current) drug therapy; R07.89 Other chest pain; Z82.49 Family history of ischemic heart disease and other diseases of the circulatory system; R73.9 Hyperglycemia, unspecified; M10.9 Gout, unspecified; G47.33 Obstructive sleep apnea (adult) (pediatric); I25.10 Atherosclerotic heart disease of native coronary artery without angina pectoris; E66.01 Morbid (severe) obesity due to excess calories; Z95.5 Presence of coronary angioplasty implant and graft; E78.5 Hyperlipidemia, unspecified; R73.03 Prediabetes; I10 Essential (primary) hypertension; Z68.44 Body mass index [BMI] 60.0-69.9, adult; Z79.82 Long term (current) use of aspirin

== ENCOUNTER 2022-09-16 10:03 | Inpatient (IN) ==
--- NOTE | 2022-09-16 11:01 | XRay Report ---
XR chest 1V portable HISTORY: Chest pain, nonspecific COMPARISON: Chest 07/10/2020. FINDINGS: Right midlung zone nodular density is difficult to assess due to the overlapping ribs. Foll ow-up chest CT recommended for further evaluation. No pneumothorax. No pleural effusions. The heart r emains top normal in size. No evidence for pulmonary edema. No new focal lung consolidations to sugge st a pneumonia. IMPRESSION: Right midlung zone nodular density is difficult to assess due to the overlapping ribs. Follow-up ches t CT recommended for further evaluation. ACT 112: Positive. There are findings on this exam that require communication between the performing entity and the patient following Patient Test Result Information Act ([place] Act 112) guidelines. Electronically signed by: Foster Hua M.D. 09/16/2022 11:00 AM
--- NOTE | 2022-09-16 11:04 | Emergency Department Note ---
Impression & Plan Precordial chest pain, Exertional chest pain, SOB (shortness of breath), History of coronary artery disease ED Provider Note NAME: DEANN SAL AGE: 57 SEX: M : 1965 ARRIVES VIA: Walk-In INFORMANT: [Patient] ED PROVIDER(S): [Lei Nicole MD] CHIEF COMPLAINT: Chest pain HISTORY OF PRESENT ILLNESS: The patient is a 57-year-old male with a history of coronary disease. He had 1 coronary stent placed around 6 years ago. In the last few months, he has had exertional chest pain which seems to be worsening. His pain is fairly severe with exertion and lasts 15 to 20 minutes and then resolves. He feels short of breath with it and sweaty, no nausea. He has had no pain radiation. Because of his complaints, he was sent to the ED today by [facility] for a cardiac work-up. The patient currently has no chest pain. PMHx/PSHx: See Below SOCIAL HISTORY: See Below. PHYSICAL EXAM: GENERAL: Patient is in no acute distress. HEENT: No acute trauma, normocephalic atraumatic, mucous membranes moist, no nasal congestion. NECK: No stridor, no adenopathy, no meningismus, trachea is midline. LUNGS: Clear to auscultation bilaterally, no wheeze, no rhonchi, breath sounds equal. HEART: 2/6 systolic murmur, regular rate and rhythm. ABDOMEN: Soft, nontender, bowel sounds positive, no peritonitis. Obese. EXTREMITIES: No cyanosis, moderate bilateral pedal edema, full range of motion of all the joints without pain or difficulty, no signs for acute trauma. NEUROLOGIC: Oriented x 3, no acute motor or sensory deficits, no focal weakness. SKIN: No rash, no jaundice, no diaphoresis. DIFFERENTIAL DIAGNOSIS: Angina, cardiac dysrhythmia, CHF, anemia, pneumonia, HI, among others. EMERGENCY DEPARTMENT COURSE/PROCEDURES: Prior/Outside records reviewed: None. ECG per my interpretation: Indication was chest pain. The ECG shows a normal sinus rhythm with a rate of 62. There is no ST elevation, no PVCs. The QTc is 424. Continuous Cardiac Monitoring per my interpretation: An order was placed for continuous cardiac monitoring. The monitor shows a rate of 63 with normal sinus rhythm. MEDICAL DECISION MAKING: There is no leukocytosis or concerning anemia. There is a normal platelet count. No coagulopathy. No renal failure or significant electrolyte a bnormality. No concerning liver enzyme elevation. ECG shows a normal sinus rhythm, no dysrhythmia. Cardiac enzyme testing x1 is not consistent with acute cardiac injury. No evidence for pancreatitis by our testing. COVID test returned negative. Chest film per my review does not show mediastinal widening, pneumonia or pneumothorax. The patient presents with exertional chest pain associated with dyspnea and diaphoresis. He has known coronary disease. I did speak with cardiology, Dr. Singleton. The patient is in need of a hospital stay and likely a cardiac catheterization. I talked to the patient, I talked to case management, the on-call hospitalist was consulted. DISPOSITION: The patient's history and presentation warrant a hospital stay and further cardiac work-up. Past Med/Surg History Medical History CAD (coronary artery disease) GERD (gastroesophageal reflux disease) Gout Hyperlipidemia Morbid obesity Osteoarthritis Restless leg syndrome Right shoulder pain Sleep apnea CPAP SOB (shortness of breath) on exertion Surgical History History of anesthesia reaction BRONCHOSPASM POST EXTUBATION History of arthroscopy of right knee History of cardiac cath 1 STENT 05/2016 [facility] History of cataract surgery 09/08/18 - [facility] – [place] History of vitrectomy Lt Hx of hand surgery L EFT-REVISION TIP FINGER Family History Mother Family history of diabetes mellitus Coronary heart disease, Onset Age: 63 Father Coronary heart disease, Onset Age: 57 Cancer Social History Smoking Status: Never smoker Tobacco Type: Smokeless Tobacco (Dip or Chew) Second Hand Exposure: No; Hx Alcohol Use: No Hx Substance Use: No Preferred Language: Taiwanese Communication Ability: Effective Barrel Coater Required: No Beliefs That Will Affect Care: None Current Living Situation: Family Current Living Situation Comment: with daughter Feels Safe at Home: Yes Assistive Devices: CPAP Allergies Allergies Allergy/AdvReac Type Severity Reaction Status Date / Time No Known Allergies Allergy ` Verified 07/10/20 08:25 Home Meds Home Medications Medication Instructions Recorded Confirmed atorvastatin 80 mg tablet 80 mg PO QPM 05/07/18 09/16/22 lisinopril 20 mg tablet 20 mg PO QPM 05/07/18 09/16/22 meloxicam 15 mg tablet 15 mg PO QPM 05/07/18 09/16/22 nitroglycerin 0.4 mg sublingual 0.4 mg sublingual UD PRN Pain 05/07/18 09/16/22 tablet (Nitrostat) pantoprazole 40 mg tablet,delayed 40 mg PO QPM 05/07/18 09/16/22 release ropinirole 0.25 mg tablet 0.25 mg PO HS 05/07/18 09/16/22 aspirin 81 mg tablet,delayed 81 mg PO HS 07/10/20 09/16/22 release baclofen 10 mg tablet 10 mg PO HS PRN Muscle Spasm 07/10/20 09/16/22 hydroxyzine HCl 25 mg tablet 25 mg PO HS PRN anxiety/sleep 07/10/20 09/16/22 potassium gluconate 595 mg (99 mg) 595 mg PO HS 07/10/20 09/16/22 tablet trazodone 150 mg tablet 200 mg PO HS 07/10/20 09/16/22 ezetimibe 10 mg tablet 10 mg PO DAILY 09/16/22 09/16/22 gabapentin 300 mg capsule 300 mg PO AMHS 09/16/22 09/16/22 metoprolol succinate 50 mg 75 mg PO DAILY 09/16/22 09/16/22 tablet,extended release 24 hr torsemide 20 mg tablet 20 mg PO DAILY 09/16/22 09/16/22 Results & Data (ED) Vital Signs Vital Signs - 24 hr 09/16/22 10:06 09/16/22 10:24 09/16/22 10:23 Temperature 36.4 C L Temperature Source Temporal Artery Scan Pulse Rate 76 63 Pulse Rate from SpO2 Sensor Respiratory Rate 28 H Respiratory Effort / Characteristics Short of Breath Respiratory Depth Normal Respiratory Pattern Regular Blood Pressure 229/118 H Blood Pressure Mean 155 Blood Pressure Position Sitting Pulse Oximetry 91 94 Oxygen Delivery Method Room Air Room Air Sepsis Recent Fever Within 48 Hours No Sepsis New/Unexplained Change in Mental Status No Sepsis Action Taken by Nursing No Action Required 09/16/22 10:20 09/16/22 10:30 09/16/22 10:30 Temperature Temperature Source Pulse Rate 65 63 Pulse Rate from SpO2 Sensor 64 64 Respiratory Rate 18 17 Respiratory Effort / Characteristics Respiratory Depth Respiratory Pattern Blood Pressure 165/79 H Blood Pressure Mean 107 Blood Pressure Position Pulse Oximetry 95 94 Oxygen Delivery Method Room Air Room Air Sepsis Recent Fever Within 48 Hours Sepsis New/Unexplained Change in Mental Status Sepsis Action Taken by Nursing 09/16/22 10:40 09/16/22 10:50 09/16/22 11:00 Temperature Temperature Source Pulse Rate 67 64 Pulse Rate from SpO2 Sensor Respiratory Rate 10 L 16 Respiratory Effort / Characteristics Respiratory Depth Respiratory Pattern Blood Pressure 179/118 H Blood Pressure Mean 138 Blood Pressure Position Pulse Oximetry Oxygen Delivery Method Sepsis Recent Fever Within 48 Hours Sepsis New/Unexplained Change in Mental Status Sepsis Action Taken by Nursing 09/16/22 11:00 09/16/22 11:10 09/16/22 11:20 Temperature Temperature Source Pulse Rate 64 67 66 Pulse Rate from SpO2 Sensor Respiratory Rate 18 18 19 Respiratory Effort / Characteristics Respiratory Depth Respiratory Pattern Blood Pressure Blood Pressure Mean Blood Pressure Position Pulse Oximetry Oxygen Delivery Method Sepsis Recent Fever Within 48 Hours Sepsis New/Unexplained Change in Mental Status Sepsis Action Taken by Nursing 09/16/22 11:30 09/16/22 11:30 09/16/22 11:40 Temperature Temperature Source Pulse Rate 64 65 Pulse Rate from SpO2 Sensor Respiratory Rate 16 15 Respiratory Effort / Characteristics Respiratory Depth Respiratory Pattern Blood Pressure 181/104 H Blood Pressure Mean 129 Blood Pressure Position Pulse Oximetry Oxygen Delivery Method Sepsis Recent Fever Within 48 Hours Sepsis New/Unexplained Change in Mental Status Sepsis Action Taken by Nursing 09/16/22 11:45 09/16/22 11:45 09/16/22 11:50 Temperature Temperature Source Pulse Rate 66 63 Pulse Rate from SpO2 Sensor Respiratory Rate 19 16 Respiratory Effort / Characteristics Respiratory Depth Respiratory Pattern Blood Pressure 151/89 H Blood Pressure Mean 109 Blood Pressure Position Pulse Oximetry Oxygen Delivery Method Sepsis Recent Fever Within 48 Hours Sepsis New/Unexplained Change in Mental Status Sepsis Action Taken by Nursing 09/16/22 12:00 09/16/22 12:02 09/16/22 12:02 Temperature Temperature Source Pulse Rate 68 69 Pulse Rate from SpO2 Sensor Respiratory Rate 14 19 Respiratory Effort / Characteristics Respiratory Depth Respiratory Pattern Blood Pressure 145/77 H Blood Pressure Mean 99 Blood Pressure Position Pulse Oximetry Oxygen Delivery Method Sepsis Recent Fever Within 48 Hours Sepsis New/Unexplained Change in Mental Status Sepsis Action Taken by Nursing 09/16/22 12:10 09/16/22 12:20 09/16/22 12:30 Temperature Temperature Source Pulse Rate 68 69 69 Pulse Rate from SpO2 Sensor Respiratory Rate 11 L 15 24 Respiratory Effort / Characteristics Respiratory Depth Respiratory Pattern Blood Pressure Blood Pressure Mean Blood Pressure Position Pulse Oximetry Oxygen Delivery Method Sepsis Recent Fever Within 48 Hours Sepsis New/Unexplained Change in Mental Status Sepsis Action Taken by Nursing 09/16/22 12:31 09/16/22 12:31 09/16/22 12:40 Temperature Temperature Source Pulse Rate 65 71 Pulse Rate from SpO2 Sensor Respiratory Rate 17 14 Respiratory Effort / Characteristics Respiratory Depth Respiratory Pattern Blood Pressure 141/64 H Blood Pressure Mean 89 Blood Pressure Position Pulse Oximetry Oxygen Delivery Method Sepsis Recent Fever Within 48 Hours Sepsis New/Unexplained Change in Mental Status Sepsis Action Taken by Nursing 09/16/22 12:50 09/16/22 13:03 09/16/22 13:10 Temperature Temperature Source Pulse Rate 68 68 69 Pulse Rate from SpO2 Sensor Respiratory Rate 16 10 L 24 Respiratory Effort / Characteristics Respiratory Depth Respiratory Pattern Blood Pressure Blood Pressure Mean Blood Pressure Position Pulse Oximetry Oxygen Delivery Method Sepsis Recent Fever Within 48 Hours Sepsis New/Unexplained Change in Mental Status Sepsis Action Taken by Nursing 09/16/22 13:20 09/16/22 14:20 Temperature Temperature Source Pulse Rate 61 62 Pulse Rate from SpO2 Sensor Respiratory Rate 14 Respiratory Effort / Characteristics Respiratory Depth Respiratory Pattern Blood Pressure Blood Pressure Mean Blood Pressure Position Pulse Oximetry Oxygen Delivery Method Sepsis Recent Fever Within 48 Hours Sepsis New/Unexplained Change in Mental Status Sepsis Action Taken by Long Term Medications Current Medication List: was personally reviewed by me Laboratory Data Attestation: I reviewed the patient's lab results. 09/16/22 10:33 09/16/22 10:33 Lab Results 09/16/22 09/16/22 09/16/22 Range/Units 10:30 10:33 10:33 WBC 8.08 (4.8-10.8) K/ul RBC 4.66 L (4.70-6.10) M/uL Hgb 14.2 (14.0-18.0) g/dl Hct 42.1 (42.0-52.0) % MCV 90.3 (80.0-100.0) fL MCH 30.5 (25.0-34.0) pg MCHC 33.7 (32.0-36.0) g/dL RDW Std Deviation 41.8 (36.4-46.3) fL RDW Coeff of Ghada 12.8 (11.5-14.5) % Plt Count 233 (130-400) K/uL MPV 10.1 (9.4-12.4) fL Immature Gran % (Auto) 0.4 % Neut % (Auto) 62.0 % Lymph % (Auto) 21.3 % [place] % (Auto) 12.5 % Eos % (Auto) 3.3 % Baso % (Auto) 0.5 % Neut # (Auto) 5.01 (1.40-6.50) K/uL Lymph # (Auto) 1.72 (1.2-3.4) K/uL [place] # (Auto) 1.01 H (0.11-0.59) K/uL Eos # (Auto) 0.27 (0-0.50) K/uL Baso # (Auto) 0.04 (0-0.2) K/uL Immature Gran # (Auto) 0.03 (0.01-0.20) K/uL PT 10.7 (9.0-12.0) Seconds INR 1.0 (0.9-1.1) APTT 28.2 (21.0-31.0) Seconds PTT Ratio 1.0 Sodium (136-145) mmol/L Potassium (3.5-5.1) mmol/L Chloride (98-107) mmol/L Carbon Dioxide (21-32) mmol/L Anion Gap (3-11) BUN (6-23) mg/dl Creatinine (0.6-1.4) mg/dl Est Cr Clr Drug Dosing ml/min Est GFR ( Amer) ml/min Est GFR (Non-Af Amer) ml/min BUN/Creatinine Ratio (10-20) Glucose (70-99(Fasting)) mg/dl Calcium (8.5-10.1) mg/dl Magnesium (1.7-2.4) mg/dl Total Bilirubin (0.2-1.0) mg/dl AST (13-39) U/L ALT (7-52) U/L Alkaline Phosphatase (34-104) U/L Troponin I High Sens (0-20) pg/ml Total Protein (6.0-8.3) gm/dl Albumin (3.4-5.0) gm/dl Globulin (2.5-4.0) gm/dl Albumin/Globulin Ratio (0.9-2) Lipase (11-82) U/L SARS-CoV-2, RNA, NAAT NEGATIVE (NEGATIVE) 09/16/22 Range/Units 10:33 WBC (4.8-10.8) K/ul RBC (4.70-6.10) M/uL Hgb (14.0-18.0) g/dl Hct (42.0-52.0) % MCV (80.0-100.0) fL MCH (25.0-34.0) pg MCHC (32.0-36.0) g/dL RDW Std Deviation (36.4-46.3) fL RDW Coeff of Ghada (11.5-14.5) % Plt Count (130-400) K/uL MPV (9.4-12.4) fL Immature Gran % (Auto) % Neut % (Auto) % Lymph % (Auto) % [place] % (Auto) % Eos % (Auto) % Baso % (Auto) % Neut # (Auto) (1.40-6.50) K/uL Lymph # (Auto) (1.2-3.4) K/uL [place] # (Auto) (0.11-0.59) K/uL Eos # (Auto) (0-0.50) K/uL Baso # (Auto) (0-0.2) K/uL Immature Gran # (Auto) (0.01-0.20) K/uL PT (9.0-12.0) Seconds INR (0.9-1.1) APTT (21.0-31.0) Seconds PTT Ratio Sodium 140 (136-145) mmol/L Potassium 4.0 (3.5-5.1) mmol/L Chloride 107 (98-107) mmol/L Carbon Dioxide 27 (21-32) mmol/L Anion Gap 6 (3-11) BUN 14 (6-23) mg/dl Creatinine 0.82 (0.6-1.4) mg/dl Est Cr Clr Drug Dosing 179.3 ml/min Est GFR ( Amer) 112.2 ml/min Est GFR (Non-Af Amer) 96.8 ml/min BUN/Creatinine Ratio 17.1 (10-20) Glucose 155 H (70-99(Fasting)) mg/dl Calcium 9.3 (8.5-10.1) mg/dl Magnesium 1.9 (1.7-2.4) mg/dl Total Bilirubin 0.6 (0.2-1.0) mg/dl AST 20 (13-39) U/L ALT 31 (7-52) U/L Alkaline Phosphatase 97 (34-104) U/L Troponin I High Sens 13.3 (0-20) pg/ml Total Protein 7.2 (6.0-8.3) gm/dl Albumin 4.1 (3.4-5.0) gm/dl Globulin 3.1 (2.5-4.0) gm/dl Albumin/Globulin Ratio 1.3 (0.9-2) Lipase 12 (11-82) U/L SARS-CoV-2, RNA, NAAT (NEGATIVE) Imaging Data Radiologist's Impression: Chest X-Ray 09/16/22 10:14 XR chest 1V portable HISTORY: Chest pain, nonspecific COMPARISON: Chest 07/10/2020. FINDINGS: Right midlung zone nodular density is difficult to assess due to the overlapping ribs. Follow-up chest CT recommended for further evaluation. No pneumothorax. No pleural effusions. The heart remains top normal in size. No evidence for pulmonary edema. No new focal lung consolidations to suggest a pneumonia. IMPRESSION: Right midlung zone nodular density is difficult to assess due to the overlapping ribs. Follow-up chest CT recommended for further evaluation. ACT 112: Positive. There are findings on this exam that require communication between the performing entity and the patient following Patient Test Result Information Act ([place] Act 112) guidelines. Electronically signed by: Foster Hua M.D. 09/16/2022 11:00 AM Discharge Plan Visit Data Chief Complaint: Referred by Doctor Stated Complaint: MASSIVE CHEST PAINS, NEEDS STRESS TEST ED Provider: Lei Nicole Discharge Problem: Precordial chest pain, Exertional chest pain, SOB (shortness of breath), History of coronary artery disease Patient Disposition: Admitted As Inpatient Condition: Good Forms Stand Alone Forms: My makeena Prescriptions Prescriptions: No Action atorvastatin 80 mg Tablet 80 mg PO QPM meloxicam 15 mg Tablet 15 mg PO QPM lisinopril 20 mg Tablet 20 mg PO QPM pantoprazole 40 mg Tablet,Delayed Release (Dr/Ec) 40 mg PO QPM nitroglycerin [Nitrostat] 0.4 mg Tablet, Sublingual 0.4 mg Sublingual UD PRN (Reason: Pain) ropinirole 0.25 mg Tablet 0.25 mg PO HS aspirin 81 mg Tablet,Delayed Release (Dr/Ec) 81 mg PO HS baclofen 10 mg tablet 10 mg PO HS PRN (Reason: Muscle Spasm) potassium gluconate 595 mg (99 mg) Tablet 595 mg PO HS trazodone 150 mg Tablet 200 mg PO HS hydroxyzine HCl 25 mg tablet 25 mg PO HS PRN (Reason: anxiety/sleep) gabapentin 300 mg capsule 300 mg PO AMHS torsemide 20 mg tablet 20 mg PO DAILY metoprolol succinate 50 mg tablet extended release 24 hr 75 mg PO DAILY ezetimibe 10 mg tablet 10 mg PO DAILY Referrals Referrals: Suresh Trevino DO [Primary Care Provider] -
[2022-09-16 11:20] LABS: Basophils # (auto) 0.04 K/uL (0-0.2); Basophils % (auto) 0.5 %; Eosinophils # (auto) 0.27 K/uL (0-0.50); Eosinophils % (auto) 3.3 %; Hematocrit (blood only) 42.1 % (42.0-52.0); Hemoglobin 14.2 g/dl (14.0-18.0); Immature Granulocytes # (auto) 0.03 K/uL (0.01-0.20); Immature Granulocytes % (auto) 0.4 %; Lymphocytes # (auto) 1.72 K/uL (1.2-3.4); Lymphocytes % (auto) 21.3 %; Mean Corpuscular Hemoglobin 30.5 pg (25.0-34.0); Mean Corpuscular Hgb Conc 33.7 g/dL (32.0-36.0); Mean Corpuscular Volume 90.3 fL (80.0-100.0); Mean Platelet Volume 10.1 fL (9.4-12.4); Monocytes # (auto) 1.01 K/uL (0.11-0.59); Monocytes % (auto) 12.5 %; Neutrophils # (auto) 5.01 K/uL (1.40-6.50); Platelet Count 233 K/uL (130-400); RDW Coefficient of Variation 12.8 % (11.5-14.5); RDW Standard Deviation 41.8 fL (36.4-46.3); Red Blood Count 4.66 M/uL (4.70-6.10); White Blood Count 8.08 K/ul (4.8-10.8)
[2022-09-16 11:41] LABS: Albumin Globulin Ratio 1.3 (0.9-2); Albumin Level 4.1 gm/dl (3.4-5.0); BUN Creatinine Ratio 17.1 (10-20); Bilirubin,Total 0.6 mg/dl (0.2-1.0); Calcium 9.3 mg/dl (8.5-10.1); Creatinine Clr Calc Pharmacy 179.3 ml/min; Est GFR (African American) 112.2 ml/min; Est GFR (Non-African American) 96.8 ml/min; Globulin 3.1 gm/dl (2.5-4.0); Magnesium 1.9 mg/dl (1.7-2.4); Total Protein 7.2 gm/dl (6.0-8.3)
[2022-09-16 11:47] LABS: Troponin I High Sensitivity 13.3 pg/ml (0-20)
[2022-09-16 11:51] LABS: Partial Thromboplastin Time 28.2 Seconds (21.0-31.0); Prothrombin Time 10.7 Seconds (9.0-12.0)
--- NOTE | 2022-09-16 13:03 | History & Physical Report ---
Date of Service September 16, 2022 Assessment & Plan (1) Exertional chest pain: (2) Palpitations: (3) CAD (coronary artery disease): (4) HTN (hypertension): (5) Morbid obesity: (6) Sleep apnea: Plan This is a 57-year-old male who has significant past medical history of CAD with history of GRETCHEN to RCA in 2016, HTN, HLD, SALVADOR on CPAP, gout, depression with anxiety , RLS and insomnia who presents to ED secondary to exertional chest pain x 3 months. Stable Angina Palpitations CAD - hx of GRETCHEN to RCA in 2016 hx of PSVT admit to PCU NPO after midnight, to under go cardiac cath pt currently chest pain free, ecg w/o st t wave change and initial trop negative cycle trop, repeat ecg continue metoprolol, asa, statin, lisinopril, torsemide last echo 03/2022 with preserved EF, mod LVH, Grade 1 DD, will defer repeat echo to cardiology SALVADOR continue cpap at HS Morbid Obesity BMI 65 encourage diet and lifestyle modifications Depression with anxiety Insomnia continue trazodone, prn hydroxyzine at HS DVT ppx: SQ Lovenox FULL CODE PCP: Uriel Dispo: admit for cardiac cath Pt was seen and examined in collaboration with Dr. Almonte, please see ad dendum A total of 80 minutes was spent with greater than 50% of that time face to face with the patient, personally viewing and interpreting all current laboratories, imaging studies, past medication reconciliation, outpatient chart review to collaborate care for the patient with attending. Please see attending documentation for corrections and/or additions. History of Present Illness Chief Complaint: Exertional Cp x 3 months. Primary Care Provider: Suresh Trevino DO This is a 57-year-old male who has significant past medical history of CAD with history of GRETCHEN to RCA in 2016, HTN, HLD, SALVADOR on CPAP, gout, depression with anxiety , RLS and insomnia who presents to ED secondary to exertional chest pain x 3 months. He states when he walks to his bathroom which is about 15 yards he gets pounding in his chest and SOB. He also gets substernal, nonradiating chest pain that comes and goes with minimal exertion. This has been going on for 3 months and symptoms are worsening. Initially sx weren't that bad, but now with even minimal activity is starts. He has bad knees, L > R. He takes 3 tylenol and 3 motrin daily. He complains of orthopnea when lying flat and he states it is due to his large belly. He denies any recent illness, f/c/s, lightheaded, dizziness, syncope, URI sx, cough, n/v/d, abd pain. He denies any current chest pain, although when he recently walked to the bathroom he developed substernal chest pain. He has been taking his medications regularly. He follows with [facility] and has recently had work up for palpitations. A Zio Patch showed PSVT and his atenolol was switched to metoprolol. He was also switched from HCTZ to torsemide. He denies any improvement of his palpitations with switching medications. Allergies Allergy/AdvReac Type Severity Reaction Status Date / Time No Known Allergies Allergy ` Verified 07/10/20 08:25 Home Medications Medication Instructions Recorded Confirmed Type atorvastatin 80 mg tablet 80 mg PO QPM 05/07/18 09/16/22 History lisinopril 20 mg tablet 20 mg PO QPM 05/07/18 09/16/22 History meloxicam 15 mg tablet 15 mg PO QPM 05/07/18 09/16/22 History nitroglycerin 0.4 mg sublingual 0.4 mg sublingual UD PRN Pain 05/07/18 09/16/22 History tablet (Nitrostat) pantoprazole 40 mg tablet,delayed 40 mg PO QPM 05/07/18 09/16/22 History release ropinirole 0.25 mg tablet 0.25 mg PO HS 05/07/18 09/16/22 History aspirin 81 mg tablet,delayed 81 mg PO HS 07/10/20 09/16/22 History release baclofen 10 mg tablet 10 mg PO HS PRN Muscle Spasm 07/10/20 09/16/22 History hydroxyzine HCl 25 mg tablet 25 mg PO HS PRN anxiety/sleep 07/10/20 09/16/22 History potassium gluconate 595 mg (99 mg) 595 mg PO HS 07/10/20 09/16/22 History tablet trazodone 150 mg tablet 200 mg PO HS 07/10/20 09/16/22 History ezetimibe 10 mg tablet 10 mg PO DAILY 09/16/22 09/16/22 History gabapentin 300 mg capsule 300 mg PO AMHS 09/16/22 09/16/22 History metoprolol succinate 50 mg 75 mg PO DAILY 09/16/22 09/16/22 History tablet,extended release 24 hr torsemide 20 mg tablet 20 mg PO DAILY 09/16/22 09/16/22 History Past Med/Surg History Medical History CAD (coronary artery disease) GERD (gastroesophageal reflux disease) Gout Hyperlipidemia Morbid obesity Osteoarthritis Restless leg syndrome Right shoulder pain Sleep apnea CPAP SOB (shortness of breath) on exertion Surgical History History of anesthesia reaction BRONCHOSPASM POST EXTUBATION History of arthroscopy of right knee History of cardiac cath 1 STENT 05/2016 [facility] History of cataract surgery 09/08/18 - [facility] [place] History of vitrectomy Lt Hx of hand surgery L EFT-REVISION TIP FINGER Family History Mother Family history of diabetes mellitus Coronary heart disease, Onset Age: 63 Father Coronary heart disease, Onset Age: 57 Cancer Social History Smoking Status: Never smoker Tobacco Type: Smokeless Tobacco (Dip or Chew) Second Hand Exposure: No; Hx Alcohol Use: No Hx Substance Use: No Preferred Language: New Zealander Communication Ability: Effective Mason Helper Required: No Beliefs That Will Affect Care: None Current Living Situation: Family Current Living Situation Comment: with daughter Feels Safe at Home: Yes Assistive Devices: CPAP Review of Systems Review of Systems: All systems reviewed & are unremarkable except as noted in HPI & below Physical Exam Physical Exam: Please refer to Dr. Almonte addendum for physical exam findings. Results & Data Results & Data ([facility]) Vital Signs (Past 12 Hours) Vital Signs Temp Pulse Resp BP Pulse Ox O2 Del Method 09/16/22 11:10 67 18 09/16/22 11:00 64 18 09/16/22 11:00 179/118 H 09/16/22 10:50 64 16 09/16/22 10:40 67 10 L 09/16/22 10:30 63 17 94 Room Air 09/16/22 10:30 165/79 H 09/16/22 10:20 65 18 95 Room Air 09/16/22 10:23 63 09/16/22 10:24 94 Room Air 09/16/22 10:06 36.4 C L 76 28 H 229/118 H 91 Room Air Diagnostic Findings Chest X-Ray 09/16/22 10:14 XR chest 1V portable HISTORY: Chest pain, nonspecific COMPARISON: Chest 07/10/2020. FINDINGS: Right midlung zone nodular density is difficult to assess due to the overlapping ribs. Follow-up chest CT recommended for further evaluation. No p neumothorax. No pleural effusions. The heart remains top normal in size. No evidence for pulmonary edema. No new focal lung consolidations to suggest a pneumonia. IMPRESSION: Right midlung zone nodular density is difficult to assess due to the overlapping ribs. Follow-up chest CT recommended for further evaluation. ACT 112: Positive. There are findings on this exam that require communication between the performing entity and the patient following Patient Test Result Information Act ([place] Act 112) guidelines. Electronically signed by: Foster Hua M.D. 09/16/2022 11:00 AM ECG Rate (beats per minute): 621 Rhythm: normal sinus Additional Comments: viewed and intrepreted by me COVID-19 Results Results COVID-19 Adm Lab Results: RBC 4.66 M/uL (4.70-6.10) L 09/16/22 WBC 8.08 K/ul (4.8-10.8) 09/16/22 Hgb 14.2 g/dl (14.0-18.0) 09/16/22 Hct 42.1 % (42.0-52.0) 09/16/22 Plt Count 233 K/uL (130-400) 09/16/22 Neutrophils (%) (Auto) 62.0 % 09/16/22 Lymphocytes (%) (Auto) 21.3 % 09/16/22 Monocytes # (Auto) 1.01 K/uL (0.11-0.59) H 09/16/22 Eosinophils # (Auto) 0.27 K/uL (0-0.50) 09/16/22 Immature Granulocyte % (Auto) 0.4 % 09/16/22 Neutrophils # (Auto) 5.01 K/uL (1.40-6.50) 09/16/22 Lymphocytes # (Auto) 1.72 K/uL (1.2-3.4) 09/16/22 Monocytes # (Auto) 1.01 K/uL (0.11-0.59) H 09/16/22 Eosinophils # (Auto) 0.27 K/uL (0-0.50) 09/16/22 Basophils # (Auto) 0.04 K/uL (0-0.2) 09/16/22 Immature Granulocyte # (Auto) 0.03 K/uL (0.01-0.20) 3 Na 140 mmol/L (136-145) 09/16/22 K 4.0 mmol/L (3.5-5.1) 09/16/22 Cl 107 mmol/L (98-107) 09/16/22 CO2 27 mmol/L (21-32) 09/16/22 Anion Gap 6 (3-11) 09/16/22 BUN 14 mg/dl (6-23) 09/16/22 Creatinine 0.82 mg/dl (0.6-1.4) 09/16/22 BUN/Creatinine Ratio 17.1 (10-20) 09/16/22 Glucose Level 155 mg/dl (70-99(Fasting)) H 09/16/22 Ca 9.3 mg/dl (8.5-10.1) 09/16/22 Total Bilirubin 0.6 mg/dl (0.2-1.0) 09/16/22 AST/SGOT 20 U/L (13-39) 09/16/22 ALT/SGPT 31 U/L (7-52) 09/16/22 Alkaline Phosphatase 97 U/L (34-104) 09/16/22 Total Protein 7.2 gm/dl (6.0-8.3) 09/16/22 Albumin 4.1 gm/dl (3.4-5.0) 09/16/22 Globulin 3.1 gm/dl (2.5-4.0) 09/16/22 Albumin/Globulin Ratio 1.3 (0.9-2) 09/16/22 PTT 28.2 Seconds (21.0-31.0) 09/16/22 INR 1.0 (0.9-1.1) 09/16/22 SARS-CoV-2, RNA, NAAT NEGATIVE (NEGATIVE) 09/16/22 Chest X-Ray 09/16/22 Code Status & VTE Plan Code Status FULL CODE VTE Prophylaxis Plan VTE Prophylaxis will be ordered: Yes Supervising Physician Co-Signing Physician Notes Pt is a 57 y/o M with hx of CAD s/p stent, HTN, HLD, RLS, LESA, SALVADOR on CPAP, DJD admitted for exertional CP. PE: Obese pt, NAD Lungs: CTA, no wheezing or crackles Cardiac: normal S1/S2, no murmur ABd: obese abd, NT, soft MSK: moderate b/l LE pitting edema Psych: AAOx3, normal affect A/P: Exertional CP: -pt experience CP with SOB and palpitation with exertion ---- resolves with rest -Cardiology recommended possible cardiac cath during hospital stay - No CP at rest ---- trop neg and EKG: NSR -admit pt to tele -NPO after MN for possible cardiac cath Other chronic conditions: Plan as above Agree with A/P by Zahra Dumont PA-C
--- NOTE | 2022-09-16 14:01 | Electrocardiogram Report ---
Test Reason : Blood Pressure : / mmHG Vent. Rate : 062 BPM Atrial Rate : 062 BPM P-R Int : 196 ms QRS Dur : 090 ms QT Int : 418 ms P-R-T Axes : 034 -04 065 degrees QTc Int : 424 ms Normal sinus rhythm Normal ECG When compared with ECG of 10-JUL-2020 14:46, No significant change was found Confirmed by Eugene Shetty ([id number]) on 09/16/2022 2:00:35 PM Referred By: Maxi Lema Confirmed By:Mark Shetty
[2022-09-16] MEDS ORDERED: hydrOXYzine HCl 25 MG TAB PO PRN (15:26)
[2022-09-16] MEDS ORDERED: MAGNESIUM HYDROXIDE SUSP 30 ML UDC PO PRN (15:26)
[2022-09-16] MEDS ORDERED: ALUMINUM/MAGNESIUM SUSP 30 ML UDC PO PRN (15:26)
[2022-09-16] MEDS ORDERED: ACETAMINOPHEN 325 MG TAB PO PRN (15:26)
[2022-09-16] MEDS ORDERED: POLYETHYLENE (MIRALAX) 17 GM PACK PO PRN (15:26)
[2022-09-16] MEDS ORDERED: ONDANSETRON INJ 2 MG/ML 2 ML VIAL IV PRN (15:26)
--- NOTE | 2022-09-16 15:35 | Cardiology Consultation ---
Date of Consultation September 16, 2022 Assessment & Plan (1) Exertional chest pain: (2) CAD (coronary artery disease): (3) Hypertension: (4) Sleep apnea: (5) Morbid obesity: Plan Given his exertional chest discomfort is similar to his previous anginal equivalent I do believe further ischemic evaluation is warranted. He will be admitted to telemetry and monitored overnight with his troponin trended We will also attempt to perform a 2D echocardiogram to evaluate for any wall motion abnormalities Unfortunately, his weight limit exceeds the weight limit of our cardiac [place] table and we would be unable to perform catheterization here Should catheterization be indicated he would require transfer to a another facility that would be able to accommodate his weight I will contact our colleagues in [place] after midnight History of Present Illness Reason for Consultation: Chest pain Requesting Physician: [facility] Attending Physician: Reji Almonte MD History of Present Illness Mr. Rdz is a 57-year-old gentleman who was sent to [facility] emergency department today by his PCP after he was evaluated for chest pain. The patient states he has been having chest pain for the last 3 to 4 m onths now. He notes that anytime he ambulates he develops a significant pressure sensation over his left precordium is associated with shortness of breath. He states over the last 3 to 4 months this has been occurring with less and less activity and to a greater deal of severity.Upon further questioning, he states that this is similar to his anginal equivalent that he experienced prior to undergoing PCI to his RCA. Currently he is without complaint at rest. Past medical history: 1. Chronic coronary artery disease status post drug eluting stent implantation to the right coronary artery - stable without exertional angina -chronic dyspnea reported (likely multifactorial). 2. Chronic atypical chest discomfort unrelated to exertion 3. Dyslipidemia - controlled, tolerating maximum dose atorvastatin 4. HTN - uncontrolled 5. Morbid obesity SALVADOR- Increased weight noted. 6. Excessive NSAID intake 7. +FH of CAD / [place] - father at age 57 Allergies Allergy/AdvReac Type Severity Reaction Status Date / Time No Known Allergies Allergy ` Verified 07/10/20 08:25 Home Medications Medication Instructions Recorded Confirmed Type atorvastatin 80 mg tablet 80 mg PO QPM 05/07/18 09/16/22 History lisinopril 20 mg tablet 20 mg PO QPM 05/07/18 09/16/22 History meloxicam 15 mg tablet 15 mg PO QPM 05/07/18 09/16/22 History nitroglycerin 0.4 mg sublingual 0.4 mg sublingual UD PRN Pain 05/07/18 09/16/22 History tablet (Nitrostat) pantoprazole 40 mg tablet,delayed 40 mg PO QPM 05/07/18 09/16/22 History release ropinirole 0.25 mg tablet 0.25 mg PO HS 05/07/18 09/16/22 History aspirin 81 mg tablet,delayed 81 mg PO HS 07/10/20 09/16/22 History release baclofen 10 mg tablet 10 mg PO HS PRN Muscle Spasm 07/10/20 09/16/22 History hydroxyzine HCl 25 mg tablet 25 mg PO HS PRN anxiety/sleep 07/10/20 09/16/22 History potassium gluconate 595 mg (99 mg) 595 mg PO HS 07/10/20 09/16/22 History tablet trazodone 150 mg tablet 200 mg PO HS 07/10/20 09/16/22 History ezetimibe 10 mg tablet 10 mg PO DAILY 09/16/22 09/16/22 History gabapentin 300 mg capsule 300 mg PO AMHS 09/16/22 09/16/22 History metoprolol succinate 50 mg 75 mg PO DAILY 09/16/22 09/16/22 History tablet,extended release 24 hr torsemide 20 mg tablet 20 mg PO DAILY 09/16/22 09/16/22 History Patient History Medical History CAD (coronary artery disease) GERD (gastroesophageal reflux disease) Gout Hyperlipidemia Morbid obesity Osteoarthritis Restless leg syndrome Right shoulder pain Sleep apnea CPAP SOB (shortness of breath) on exertion Surgical History History of anesthesia reaction BRONCHOSPASM POST EXTUBATION History of arthroscopy of right knee History of cardiac cath 1 STENT 05/2016 [facility] History of cataract surgery 09/08/18 - [facility] [place] History of vitrectomy Lt Hx of hand surgery L EFT-REVISION TIP FINGER Family History Mother Family history of diabetes mellitus Coronary heart disease, Onset Age: 63 Father Coronary heart disease, Onset Age: 57 Cancer Social History Smoking Status: Never smoker Second Hand Exposure: No; Hx Alcohol Use: No Hx Substance Use: No Preferred Language: Fijian Communication Ability: Effective Maintenance Parts Technician Required: No Beliefs That Will Affect Care: None Current Living Situation: Family Current Living Situation Comment: with daughter Other Information That Helps Us Care for You: No Feels Safe at Home: Yes Assistive Devices: CPAP Review of Systems Review of Systems: All systems reviewed & are unremarkable except as noted in HPI & below Physical Exam Physical Exam: Physical Exam: General: Awake, alert and oriented x 3. No acute distress. HEENT: Normocephalic, atraumatic. Pupils equal, round and reactive to light and accommodation. Extraocular muscles are intact. Anicteric sclera. Moist mucous membranes. Neck: No JVD. No bruit. Cardiovascular: Regular but distant due to body habitus. Unable appreciate murmurs rubs or gallops Pulmonary: Clear to auscultation bilaterally. No rales, rhonchi, or wheezing. Abdomen: Bowel sounds x 4, soft. No rebound, guarding or tenderness. No organomegaly. Extremities: No clubbing, cyanosis or edema. +2 pedal pulses bilaterally. Skin: Warm and dry. Results & Data ([facility]) Vital Signs (Past 12 Hours) Vital Signs Temp Pulse Resp BP Pulse Ox O2 Del Method 09/16/22 14:31 62 14 09/16/22 14:31 137/87 09/16/22 14:30 61 15 09/16/22 14:20 60 14 09/16/22 14:10 57 L 14 09/16/22 14:00 64 15 09/16/22 14:00 166/99 H 09/16/22 13:50 56 L 14 09/16/22 13:40 58 L 13 09/16/22 13:31 154/100 H 09/16/22 13:31 62 13 09/16/22 13:30 64 16 09/16/22 14:20 62 09/16/22 13:20 61 14 09/16/22 13:10 69 24 09/16/22 13:03 68 10 L 09/16/22 12:50 68 16 09/16/22 12:40 71 14 09/16/22 12:31 65 17 09/16/22 12:31 141/64 H 09/16/22 12:30 69 24 09/16/22 12:20 69 15 09/16/22 12:10 68 11 L 09/16/22 12:02 69 19 09/16/22 12:02 145/77 H 09/16/22 12:00 68 14 09/16/22 11:50 63 16 09/16/22 11:45 66 19 09/16/22 11:45 151/89 H 09/16/22 11:40 65 15 09/16/22 11:30 64 16 09/16/22 11:30 181/104 H 09/16/22 11:20 66 19 09/16/22 11:10 67 18 09/16/22 11:00 64 18 09/16/22 11:00 179/118 H 09/16/22 10:50 64 16 09/16/22 10:40 67 10 L 09/16/22 10:30 63 17 94 Room Air 09/16/22 10:30 165/79 H 09/16/22 10:20 65 18 95 Room Air 09/16/22 10:23 63 09/16/22 10:24 94 Room Air 09/16/22 10:06 36.4 C L 76 28 H 229/118 H 91 Room Air Diagnostic Findings Cardiac catheterization June 03, 2016 summary: 80% mid right coronary artery stenosis status post drug-eluting stent implantation. Otherwise mild nonobstructive coronary disease. 2D echo report 03/28/2022: The qualitative LV ejection fraction is 65-69% (normal). The LV wall thickness is moderately increased (concentric). The left ventricular wall motion is normal. The left ventricular diastolic function is mildly abnormal (grade I). Poorly visualized valvular anatomy without significant stenosis or regurgitation. Compared to prior study of 04/11/2016, there is no significant change. Exercise stress echo report: The exercise echocardiographic examination is uninterpretable due to low work load, patient achieved 63% max predicted heart rate after exercising for 2:45. Normal HR and BP response. Markedly reduced LV systolic function, requested testing to be terminated at 2 :45 of Natanael protocol stating, "Damn near ready to drop". At rest, normal LV chamber size with moderate concentric LVH. Normal LV systolic function without regional wall motion abnormality, EF 55-60%. Grade I diastolic dysfunction. No significant valvular pathology. Dobutamine stress echo report 04/17/16: Patient underwent complete resting echocardiogram 04/11/2016, at time of previous exercise stress echocardiogram. Report and images of that study were available at time of today's testing. The stress echo is negative for inducible ischemia. The stress EKG response showed no evidence of ischemia. Symptoms: mild chest ache reported at baseline which became severe at peak infusion. Symptoms resolved post-infusion. Stress symptoms mimic referral symptoms.
[2022-09-16] MEDS: METOPROLOL SUCC 25MG EXT REL TAB PO SCH (16:57)
[2022-09-16] MEDS: HEPARIN SOD 5,000 UNIT/0.5 ML VIAL SQ SCH (16:58)
[2022-09-16] MEDS: TORSEMIDE 20 MG TAB PO SCH (16:58)
[2022-09-16] MEDS ORDERED: COUGH DROP (SUGAR FREE) LOZ 24 LOZ/1 BOX BUCCAL STA (19:10)
[2022-09-16] MEDS: GABAPENTIN 300 MG CAP PO SCH (20:23)
[2022-09-16] MEDS: guaiFENesin 600 MG TABCR PO PRN (20:25)
[2022-09-16] MEDS ORDERED: ATORVASTATIN 40 MG TAB PO SCH (21:00)
[2022-09-16] MEDS ORDERED: traZODone HCL 100 MG TAB PO SCH (21:00)
[2022-09-16] MEDS ORDERED: rOPINIRole HCL 0.25 MG TABLET PO SCH (21:00)
[2022-09-16] MEDS ORDERED: ASPIRIN 81 MG ECTAB PO SCH (21:00)
[2022-09-16] MEDS ORDERED: ENOXAPARIN INJ 40 MG/0.4 ML SYR SQ SCH (21:00)
[2022-09-16] MEDS ORDERED: NON-FORMULARY MEDICATION (Potassium Gluconate 595 mg (99 mg) Tablet) PO SCH (21:00)
[2022-09-16] MEDS ORDERED: MELOXICAM 7.5 MG TAB PO SCH (21:00)
[2022-09-16] MEDS ORDERED: PANTOprazole 40 MG TAB PO SCH (21:00)
[2022-09-16] MEDS ORDERED: lisinopril 20 MG TAB PO SCH (21:00)
[2022-09-17] MEDS: HEPARIN SOD 5,000 UNIT/0.5 ML VIAL SQ SCH ×2 (00:55→09:59)
[2022-09-17 07:29] LABS: Hematocrit (blood only) 40.9 % (42.0-52.0); Hemoglobin 13.7 g/dl (14.0-18.0); Mean Corpuscular Hemoglobin 30.3 pg (25.0-34.0); Mean Corpuscular Hgb Conc 33.5 g/dL (32.0-36.0); Mean Corpuscular Volume 90.5 fL (80.0-100.0); Mean Platelet Volume 9.6 fL (9.4-12.4); Platelet Count 218 K/uL (130-400); RDW Coefficient of Variation 12.7 % (11.5-14.5); RDW Standard Deviation 41.6 fL (36.4-46.3); Red Blood Count 4.52 M/uL (4.70-6.10); White Blood Count 8.75 K/ul (4.8-10.8)
[2022-09-17 07:44] LABS: Albumin Globulin Ratio 1.3 (0.9-2); Albumin Level 3.9 gm/dl (3.4-5.0); BUN Creatinine Ratio 18.9 (10-20); Bilirubin,Total 0.9 mg/dl (0.2-1.0); Creatinine Clr Calc Pharmacy 159.2 ml/min; Est GFR (Non-African American) 93.2 ml/min; Globulin 3.1 gm/dl (2.5-4.0); Magnesium 1.9 mg/dl (1.7-2.4); Potassium 3.7 mmol/L (3.5-5.1)
[2022-09-17 08:46] LABS: Estimated Average Glucose 134 mg/dl; Hemoglobin A1C 6.3 % (4.5-5.6)
[2022-09-17] MEDS ORDERED: PERFLUTREN LIPID MICROSPHERE (DEFINITY) IV ONE (09:22)
[2022-09-17] MEDS: TORSEMIDE 20 MG TAB PO SCH ×2 (10:12→11:44)
[2022-09-17] MEDS: METOPROLOL SUCC 25MG EXT REL TAB PO SCH ×2 (10:12→11:44)
[2022-09-17] MEDS: EZETIMIBE 10 MG TABLET PO SCH ×2 (10:12→11:44)
[2022-09-17] MEDS: GABAPENTIN 300 MG CAP PO SCH ×2 (10:12→11:43)
--- NOTE | 2022-09-17 10:48 | Cardiology Progress Note ---
Date of Service September 17, 2022 Assessment & Plan (1) Exertional chest pain: (2) CAD (coronary artery disease): (3) Hypertension: (4) Sleep apnea: (5) Morbid obesity: Plan: Ischemic work up has been negative with no ischemic EKG change, normal troponins and normal wall motion on echocardiogram again, cannot complete cardiac cath at [facility], table weight limit of 400lbs [facility] can accommodate up to 575lbs I offered inpatient transfer but patient states that he'd prefer to be discharged now and have cath done as an outpatient risks reviewed, including but not limited to: heart attack, arrhythmia and pt states that he understands but prefers to have it done as an outpatient ok to d/c to home and my office will arrange outpatient cath to be done at [facility] continue current medical regimen with the addition of PRN SL nitro pt counseled to return to ED with any further symptoms and he affirmed that he would Admission and Anticipated Discharge Date Admission Date: September 16, 2022 Subjective Patient seen and examined. Chart reviewed. Telemetry reviewed. No complaints overnight. Patient anxious for discharge. Review of Systems Review of Systems: All systems reviewed & are unremarkable except as noted in HPI & below Physical Exam Physical Exam: Physical Exam: General: Awake, alert and oriented x 3. No acute distress. HEENT: Normocephalic, atraumatic. Pupils equal, round and reactive to light and accommodation. Extraocular muscles are intact. Anicteric sclera. Moist mucous membranes. Neck: No JVD. No bruit. Cardiovascular: Regular but distant due to body habitus. Unable appreciate murmurs rubs or gallops Pulmonary: Clear to auscultation bilaterally. No rales, rhonchi, or wheezing. Abdomen: Bowel sounds x 4, soft. No rebound, guarding or tenderness. No organomegaly. Extremities: No clubbing, cyanosis or edema. +2 pedal pulses bilaterally. Skin: Warm and dry. Results & Data ([facility]) Vital Signs (Past 12 Hours) Vital Signs Temp Pulse Pulse Resp BP Pulse Ox O2 Del Method 09/17/22 08:00 36.9 C 63 14 155/74 H 93 Room Air 09/17/22 04:09 82 09/17/22 03:42 80 21 92 09/17/22 03:07 36.9 C 80 16 178/99 H 92 CPAP 09/16/22 22:50 36.9 C 72 22 163/104 H 93 Room Air
--- NOTE | 2022-09-17 11:01 | Discharge Summary ---
Discharge Summary Date of Service September 17, 2022 Notes For Next Care Provider He will need outpatient cardiac catheterization at [facility] Please consider Ozempic for weight loss Medication Changes From Visit NEW nitro SL pills script given as needed Admission HPI Per Admitting Provider This is a 57-year-old male who has significant past medical history of CAD with history of GRETCHEN to RCA in 2016, HTN, HLD, SALVADOR on CPAP, gout, depression with anxiety , RLS and insomnia who presents to ED secondary to exertional chest pain x 3 months. He states when he walks to his bathroom which is about 15 yards he gets pounding in his chest and SOB. He also gets substernal, nonradiating chest pain that comes and goes with minimal exertion. This has been going on for 3 months and symptoms are worsening. Initially sx weren't that bad, but now with even minimal activity is starts. He has bad knees, L > R. He takes 3 tylenol and 3 motrin daily. He complains of orthopnea when lying flat and he states it is due to his large belly. He denies any recent illness, f/c/s, lightheaded, dizziness, syncope, URI sx, cough, n/v/d, abd pain. He denies any current chest pain, although when he recently walked to the bathroom he developed substernal chest pain. He has been taking his medications regularly. He follows with [facility] and has recently had work up for palpitations. A Zio Patch showed PSVT and his atenolol was switched to metoprolol. He was also switched from HCTZ to torsemide. He denies any improvement of his palpitations with switching medications. Principal Dx & Hospital Course #1 = Principal Diagnosis (1) Exertional chest pain: (2) Palpitations: (3) CAD (coronary artery disease): (4) HTN (hypertension): (5) Morbid obesity: (6) Sleep apnea: Plan This is a 57-year-old male who has significant past medical history of CAD with history of GRETCHEN to RCA in 2016, HTN, HLD, SALVADOR on CPAP, gout, depression with anxiety , RLS and insomnia who presents to ED secondary to exertional chest pain x 3 months. Stable Angina Palpitations CAD - hx of GRETCHEN to RCA in 2016 hx of PSVT admit to PCU NPO after midnight, to under go cardiac cath pt currently chest pain free, ecg w/o st t wave change and initial trop negative cycle trop, repeat ecg continue metoprolol, asa, statin, lisinopril, torsemide last echo 03/2022 with preserved EF, mod LVH, Grade 1 DD, will defer repeat echo to cardiology SALVADOR continue cpap at HS Morbid Obesity BMI 65 encourage diet and lifestyle modifications Depression with anxiety Insomnia continue trazodone, prn hydroxyzine at HS DVT ppx: SQ Lovenox FULL CODE PCP: Uriel Dispo: admit for cardiac cath Pt was seen and examined in collaboration with Dr. Almonte, please see addendum A total of 80 minutes was spent with greater than 50% of that time face to face with the patient, personally viewing and interpreting all current laboratories, imaging studies, past medication reconciliation, outpatient chart review to collaborate care for the patient with attending. Please see attending documentation for corrections and/or additions. Updated Medication List Medication Instructions Recorded Confirmed Type atorvastatin 80 mg tablet 80 mg PO QPM 05/07/18 09/16/22 History lisinopril 20 mg tablet 20 mg PO QPM 05/07/18 09/16/22 History meloxicam 15 mg tablet 15 mg PO QPM 05/07/18 09/16/22 History nitroglycerin 0.4 mg sublingual 0.4 mg sublingual UD PRN Pain 05/07/18 09/16/22 History tablet (Nitrostat) pantoprazole 40 mg tablet,delayed 40 mg PO QPM 05/07/18 09/16/22 History release ropinirole 0.25 mg tablet 0.25 mg PO HS 05/07/18 09/16/22 History aspirin 81 mg tablet,delayed 81 mg PO HS 07/10/20 09/16/22 History release baclofen 10 mg tablet 10 mg PO HS PRN Muscle Spasm 07/10/20 09/16/22 History hydroxyzine HCl 25 mg tablet 25 mg PO HS PRN anxiety/sleep 07/10/20 09/16/22 History potassium gluconate 595 mg (99 mg) 595 mg PO HS 07/10/20 09/16/22 History tablet trazodone 150 mg tablet 200 mg PO HS 07/10/20 09/16/22 History ezetimibe 10 mg tablet 10 mg PO DAILY 09/16/22 09/16/22 History gabapentin 300 mg capsule 300 mg PO AMHS 09/16/22 09/16/22 History metoprolol succinate 50 mg 75 mg PO DAILY 09/16/22 09/16/22 History tablet,extended release 24 hr torsemide 20 mg tablet 20 mg PO DAILY 09/16/22 09/16/22 History Hospital Stay Data Consultations 09/16/22 12:54 ED Decision to Admit Stat 09/16/22 12:54 Consult Cardiology Routine Pending Results Patient Have Any Pending Studies at Discharge: No Discharge Instructions Given to Patient (Per Discharging Provider) Please take all medications as instructed on discharge list below. Please use nitroglycerin as needed for chest pain. If you are using more than 3 nitro tabs, please seek immediate medical attention. Please follow-up with Dr. Trevino (PCP) and discuss the possibility of trying Ozempic for weight loss. You may also benefit from connecting with an outpatient medical case worker to help you arrange appointments, with your restrictions from doing telehealth visits and your mobility restrictions. Please follow-up with [facility] as instructed for outpatient cardiac catheterization. It is very important for your health that you continue efforts to increase your lean muscle mass and decrease your percent body fat. Please continue to work with your PCP in this effort. It was a pleasure taking care of you! Please call if you have any questions or problems. You can reach a [facility] hospitalist on duty at [facility] 24 hours a day by calling [phone]. Take care of yourself. Altagracia Chaney, DO [facility] Hospitalist
[2022-09-17] MEDS: guaiFENesin 600 MG TABCR PO PRN (11:43)
== END 2022-09-17 12:35 | disposition home or self-care (01) | DRG 303 ==
LOC: ED 10:03 → SUATTDRO 12:54 → 2E 12:54

== ENCOUNTER 2023-05-29 22:23 | Inpatient (IN) ==
[2023-05-29] MEDS ORDERED: SODIUM CHLORIDE 0.9% 1,000 ML IV SCH (23:00)
[2023-05-29] MEDS ORDERED: ACTIVATED CHARCOAL/SORBITOL 25 GM/120 ML TUBE PO STA ×2 (23:00→23:13)
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
[2023-05-29 23:15] LABS: Basophils # (auto) 0.04 K/uL (0.00-0.20); Basophils % (auto) 0.5 %; Eosinophils # (auto) 0.09 K/uL (0.00-0.50); Eosinophils % (auto) 1.1 %; Hematocrit (blood only) 40.3 % (42.0-52.0); Hemoglobin 13.5 g/dl (14.0-18.0); Immature Granulocytes # (auto) 0.04 K/uL (0.01-0.20); Immature Granulocytes % (auto) 0.5 %; Lymphocytes # (auto) 1.66 K/uL (1.20-3.40); Lymphocytes % (auto) 19.7 %; Mean Corpuscular Hemoglobin 30.1 pg (25.0-34.0); Mean Corpuscular Hgb Conc 33.5 g/dL (32.0-36.0); Mean Corpuscular Volume 89.8 fL (80.0-100.0); Mean Platelet Volume 9.5 fL (9.4-12.4); Monocytes # (auto) 0.77 K/uL (0.11-0.59); Monocytes % (auto) 9.1 %; Neutrophils # (auto) 5.83 K/uL (1.40-6.50); Neutrophils % (auto) 69.1 %; Platelet Count 240 K/uL (130-400); RDW Coefficient of Variation 12.4 % (11.5-14.5); RDW Standard Deviation 40.1 fL (36.4-46.3); Red Blood Count 4.49 M/uL (4.70-6.10); White Blood Count 8.43 K/ul (4.8-10.8)
[2023-05-29] MEDS ORDERED: METOPROLOL TARTRATE 1 MG/ML VIAL IV STA (23:32)
[2023-05-29] MEDS ORDERED: lisinopril 20 MG TAB PO STA (23:32)
[2023-05-29 23:42] LABS: INR 0.9 (0.9-1.1); Partial Thromboplastin Time 26.8 Seconds (21.0-31.0); Prothrombin Time 10.3 Seconds (9.0-12.0)
[2023-05-29 23:43] LABS: Bilirubin,Total 0.4 mg/dl (0.2-1.0); Calcium 9.1 mg/dl (8.6-10.3); Magnesium 2.1 mg/dl (1.7-2.4); Potassium 3.9 mmol/L (3.5-5.1)
[2023-05-29 23:49] LABS: Albumin Globulin Ratio 1.2 (0.9-2); BUN Creatinine Ratio 13.3 (10-20); Creatinine Clr Calc Pharmacy 119.2 ml/min; Est GFR (African American) 76.3 ml/min; Est GFR (Non-African American) 65.8 ml/min; Globulin 3.3 gm/dl (2.5-4.0); Total Protein 7.3 gm/dl (6.0-8.3)
[2023-05-29 23:54] LABS: Acetaminophen < 3 ug/ml (10-30); Salicylate < 3.0 mg/dl (3.0-30)
[2023-05-30 00:11] LABS: Troponin I High Sensitivity 9.8 pg/ml (0-20)
[2023-05-30] MEDS ORDERED: hydrALAZINE HCL 20 MG/ML VIAL IV ONE (01:28)
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
[2023-05-30] MEDS ORDERED: oxyCODONE HCL IR 5 MG TAB (IMMEDIATE RELEASE) PO PRN (01:32)
[2023-05-30] MEDS ORDERED: PROMETHAZINE HCL 12.5 MG in SODIUM CHLORIDE 0.9% 50 ML IV PRN (01:32)
[2023-05-30] MEDS ORDERED: LACTATED RINGER'S 1,000 ML IV ONE (01:33)
[2023-05-30] MEDS ORDERED: LORazepam 2 MG/1 ML VIAL IV PRN (01:34)
[2023-05-30 02:33] LABS: BUN Creatinine Ratio 13.3 (10-20); Calcium 8.7 mg/dl (8.6-10.3); Creatinine Clr Calc Pharmacy 136.3 ml/min; Est GFR (African American) 89.6 ml/min; Est GFR (Non-African American) 77.3 ml/min; Potassium 4.1 mmol/L (3.5-5.1)
[2023-05-30] MEDS ORDERED: BACLOFEN 10 MG TAB PO PRN (02:57)
[2023-05-30] MEDS ORDERED: ACETAMINOPHEN 325 MG TAB PO PRN (02:57)
[2023-05-30] MEDS: GABAPENTIN 300 MG CAP PO SCH ×3 (04:44→21:52)
[2023-05-30] MEDS: rOPINIRole HCL 0.25 MG TABLET PO SCH ×2 (04:45→21:52)
[2023-05-30 06:53] LABS: Appearance Urine Clear (Clear); Bilirubin Urine Negative (Negative); Blood Urine Negative (Negative); Color Urine Yellow; Glucose Urine UA Negative (Negative); Ketones Urine Negative (Negative); Leukocyte Esterase Urine Negative (Negative); Nitrite Urine Negative (Negative); Protein Urine Negative (Negative); Urobilinogen Urine Negative (Negative)
[2023-05-30 07:32] LABS: Amphetamines+Metham, Urine Neg (Neg); Barbiturates, Urine Neg (Neg); Benzodiazepine, Urine Neg (Neg); Cocaine, Urine Neg (Neg); MDMA (Ecstacy), Urine Neg (Neg); Methadone, Urine Neg (Neg); Opiate, Urine Neg (Neg); Phencyclidine, Urine Neg (Neg)
[2023-05-30] MEDS: ENOXAPARIN INJ 40 MG/0.4 ML SYR SQ SCH (08:01)
--- NOTE | 2023-05-30 12:22 | XRay Report ---
XR chest 1V portable CLINICAL HISTORY: OD TECHNIQUE: Single frontal radiograph of the chest was obtained. Comparison: Comparison is made to chest radiograph 09/16/2022 FINDINGS: Exam is limited by underpenetration. The cardiomediastinal silhouette is normal. The lungs are clear. No evidence of pleural effusion or pneumothorax. IMPRESSION: No acute chest disease. ACT 112: Negative or not required by law. Electronically signed by: Ajith August M.D. 05/30/2023 12:20 PM
--- NOTE | 2023-05-30 16:40 | Hospitalist Progress Note ---
Date of Service May 30, 2023 Assessment & Plan (1) Hypertensive crisis: Plan: Accidental tramadol overdose Denies any suicidal ideation Poison control consulted Received activated charcoal Monitor for opioid overdose Consult to be cautious with medication use Seizure precautions Hypoxia SALVADOR on CPAP Wean off of supplemental oxygen as able Continue CPAP at bedtime Chronic diastolic heart failure No signs of acute exacerbation Monitor volume status while on gentle IV fluids Resume home torsemide as able CAD S/P stent Continue aspirin, statin, metoprolol Hyperlipidemia Continue Lipitor 80 mg at bedtime Prediabetes HbA1c 6.3 last October 2022 Morbid obesity BMI 67 Needs lifestyle changes DVT Px: Lovenox SQ CODE STATUS Full code Admission and Anticipated Discharge Date Admission Date: May 30, 2023 Subjective Patient is seen and examined at bedside States feeling well today Offers no new complaints Requiring minimal supplemental oxygen to maintain saturation Denies chest pain, dyspnea, dizziness, nausea, vomiting, abdominal pain Eager to get discharged Review of Systems Review of Systems: All systems reviewed & are unremarkable except as noted in Subjective Physical Exam Physical Exam: Physical Exam: Vitals signs as noted above General Appearance:Morbidly Obese, no apparent distress Head: normocephalic, Atraumatic Eyes: normal inspection, EOMI Neck: supple, Trachea midline Respiratory/Chest: Decreased breath sounds, CTA, No accessory muscle use Cardiovascular: S1, S2, No murmur Abdomen/GI:Soft, Non tender, Bowel sounds present Extremities/Musculoskeletal:normal inspection, Trace pedal edema Neurologic/Psych:AAOX3, grossly no focal neurological deficits Skin: normal color, warm Results & Data Results & Data Vital Signs (Past 12 Hours) Vital Signs Temp Pulse Pulse Resp BP Pulse Ox O2 Del Method 05/30/23 15:06 36.5 C 78 19 152/95 H 95 Nasal Cannula 05/30/23 11:05 36.5 C 69 20 134/93 95 Nasal Cannula 05/30/23 09:08 82 05/30/23 07:53 Nasal Cannula 05/30/23 07:43 36.5 C 75 20 142/88 H 93 Nasal Cannula O2 Flow Rate 05/30/23 15:06 2.0 05/30/23 11:05 2.0 05/30/23 09:08 05/30/23 07:53 2 05/30/23 07:43 2.0 Laboratory Results Short CBC 05/29/23 Range/Units 23:00 WBC 8.43 (4.8-10.8) K/ul Hgb 13.5 L (14.0-18.0) g/dl Hct 40.3 L (42.0-52.0) % Plt Count 240 (130-400) K/uL BMP 05/29/23 05/30/23 23:00 01:55 Sodium 138 139 Potassium 3.9 4.1 Chloride 104 105 Carbon Dioxide 28 28 BUN 16 14 Creatinine 1.20 1.05 Glucose 173 H 158 H Calcium 9.1 8.7 Cardiac Enzymes 05/29/23 Range/Units 23:00 Total Creatine Kinase 183 (30-223) U/L Liver Function 05/29/23 Range/Units 23:00 Total Bilirubin 0.4 (0.2-1.0) mg/dl AST 24 (13-39) U/L ALT 26 (7-52) U/L Alkaline Phosphatase 117 H (34-104) U/L Albumin 4.0 (3.4-5.0) gm/dl Urine 05/30/23 Range/Units Unknown Urine Color Yellow Urine Appearance Clear (Clear) Urine pH 5.0 (4.5-7.5) Ur Specific [place] 1.030 (1.000-1.030) Urine Protein Negative (Negative) Urine Glucose (UA) Negative (Negative)
[2023-05-30] MEDS ORDERED: ASPIRIN 81 MG ECTAB PO SCH (21:00)
[2023-05-30] MEDS ORDERED: lisinopril 20 MG TAB PO SCH (21:00)
[2023-05-30] MEDS ORDERED: ATORVASTATIN 40 MG TAB PO SCH (21:00)
[2023-05-30] MEDS ORDERED: METOPROLOL SUCC 25MG EXT REL TAB PO SCH (21:00)
[2023-05-30] MEDS ORDERED: EZETIMIBE 10 MG TAB PO SCH (21:00)
[2023-05-31] MEDS: GABAPENTIN 300 MG CAP PO SCH (08:44)
[2023-05-31] MEDS: ENOXAPARIN INJ 40 MG/0.4 ML SYR SQ SCH (08:44)
--- NOTE | 2023-05-31 09:57 | XRay Report ---
XR chest 1V portable CLINICAL HISTORY: hypoxia TECHNIQUE: Single frontal radiograph of the chest was obtained. Comparison: Comparison is made to chest radiograph 05/29/2023 FINDINGS: Exam is limited by underpenetration. The cardiomediastinal silhouette is normal. The lungs are clear. No evidence of pleural effusion or pneumothorax. IMPRESSION: No acute abnormalities and in particular no radiographic evidence of pneumonia. ACT 112: Negative or not required by law. Electronically signed by: Ajith August M.D. 05/31/2023 9:55 AM
--- NOTE | 2023-05-31 12:29 | Hospitalist Progress Note ---
Date of Service May 31, 2023 Assessment & Plan (1) Hypertensive crisis: Plan: Accidental tramadol overdose Denies any suicidal ideation Poison control consulted Received activated charcoal Monitor for opioid overdose Consult to be cautious with medication use Seizure precautions Hypoxia SALVADOR on CPAP Weaned off of supplemental oxygen Continue CPAP at bedtime 2 step: Did not qualify for supplemental oxygen Chronic diastolic heart failure No signs of acute exacerbation Monitor volume status while Resume home torsemide Hypertension Continue home medications BP variable Monitor CAD S/P stent Continue aspirin, statin, metoprolol Hyperlipidemia Continue Lipitor 80 mg at bedtime Prediabetes HbA1c 6.3 last October 2022 Morbid obesity BMI 67 Needs lifestyle changes DVT Px: Lovenox SQ CODE STATUS Full code Disposition Home Admission and Anticipated Discharge Date Admission Date: May 30, 2023 Subjective Patient is seen and examined at bedside Doing well, no complaints Had 2 step today Denies chest pain, dyspnea, dizziness, nausea, vomiting, abdominal pain Plan to discharge home today Review of Systems Review of Systems: All systems reviewed & are unremarkable except as noted in Subjective Physical Exam Physical Exam: Physical Exam: Vitals signs as noted above General Appearance:Morbidly Obese, no apparent distress Head: normocephalic, Atraumatic Eyes: normal inspection, EOMI Neck: supple, Trachea midline Respiratory/Chest: Decreased breath sounds, CTA, No accessory muscle use Cardiovascular: S1, S2, No murmur Abdomen/GI:Soft, Non tender, Bowel sounds present Extremities/Musculoskeletal:normal inspection, Trace pedal edema Neurologic/Psych:AAOX3, grossly no focal neurological deficits Skin: normal color, warm Results & Data Results & Data Vital Signs (Past 12 Hours) Vital Signs Temp Pulse Pulse Pulse Pulse Resp Resp 05/31/23 11:24 36.5 C 74 16 05/31/23 09:34 107 H 79 26 H 05/31/23 07:49 36.6 C 67 20 05/31/23 07:10 80 05/31/23 04:00 05/31/23 02:30 36.5 C 70 18 05/31/23 01:11 EST 72 18 Resp BP Pulse Ox Pulse Ox Pulse Ox Pulse Ox O2 Del Method 05/31/23 11:24 176/106 H 91 Room Air 05/31/23 09:34 18 95 96 05/31/23 07:49 137/80 95 Nasal Cannula 05/31/23 07:10 05/31/23 04:00 96 05/31/23 02:30 144/84 H 93 Nasal Cannula 05/31/23 01:11 EST 95 O2 Del Method O2 Flow Rate O2 Flow Rate 05/31/23 11:24 05/31/23 09:34 05/31/23 07:49 3.0 05/31/23 07:10 05/31/23 04:00 Nasal Cannula 2 05/31/23 02:30 3 05/31/23 01:11 EST 2
--- NOTE | 2023-05-31 12:50 | Discharge Summary ---
Date of Service May 31, 2023 Admission HPI Per Admitting Provider History obtained from patient and records. Medical history significant for chronic diastolic heart failure (EF 60 to 65%, TTE 2022), CAD status post stent, hypertension, hyperlipidemia, prediabetes, chronic anemia (baseline hemoglobin of 13), RLS, morbid obesity, SALVADOR on CPAP. Last confinement August 2022 for exertional chest pain. Subsequent cardiac catheterization at [facility] [place]. Found to have 80% proximal LAD stenosis status post stent placement. Patient was watching television last night when he absentmindedly mistook bottle of tramadol pills for his bottle of nighttime pills. Patient thinks he took 25 tablets of 50 mg tramadol tablets. Patient denies suicidality. No prior incidents. Patient denies headache, lethargy, chest pain, SOB, abdominal pain, nausea. Patient consulted ER for evaluation. SBP 220s upon arrival at the ER. IV Lopressor and lisinopril administered at the ER. Activated charcoal administered following toxicology recommendations. 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 Admission Exam Per Admitting Provider GENERAL: Comfortable, pleasant, morbidly obese, looks older than stated age, no respiratory distress SKIN: Normal color, warm HEENT: Juliette palpebral conjunctivae, no ptosis, dry buccal mucosa, nasal cannula in place NECK : Supple, short neck, no tenderness CHEST : Decreased breath sounds, no tenderness HEART : RRR, no obvious murmurs ABDOMEN: Some distention, nontender EXTREMITIES : Minimal LE swelling, no LE tenderness, no other conspicuous deformities noted NEUROLOGIC : Coherent, no facial asymmetry, no other gross focality Principal Diagnosis Accidental tramadol overdose Hypoxia Hypertension Discharge Data Allergies Allergy/AdvReac Type Severity Reaction Status Date / Time No Known Allergies Allergy ` Verified 05/29/23 22:56 Consultations 05/29/23 23:32 ED Decision to Admit Stat Procedures Performed Laboratory Results WBC 8.43 K/ul (4.8-10.8) 05/29/23 23:00 RBC 4.49 M/uL (4.70-6.10) L 05/29/23 23:00 Hgb 13.5 g/dl (14.0-18.0) L 05/29/23 23:00 Hct 40.3 % (42.0-52.0) L 05/29/23 23:00 MCV 89.8 fL (80.0-100.0) 05/29/23 23:00 MCH 30.1 pg (25.0-34.0) 05/29/23 23: MCHC 33.5 g/dL (32.0-36.0) 05/29/23 23:00 RDW Std Deviation 40.1 fL (36.4-46.3) 05/29/23 23: RDW Coeff of Ghada 12.4 % (11.5-14.5) 05/29/23 23: Plt Count 240 K/uL (130-400) 05/29/23 23:00 MPV 9.5 fL (9.4-12.4) 05/29/23 23: Immature Gran % (Auto) 0.5 % 05/29/23 23:00 Neut % (Auto) 69.1 % 05/29/23 23:00 Lymph % (Auto) 19.7 % 05/29/23 23:00 [place] % (Auto) 9.1 % 05/29/23 23:00 Eos % (Auto) 1.1 % 05/29/23 23:00 Baso % (Auto) 0.5 % 05/29/23 23:00 Neut # (Auto) 5.83 K/uL (1.40-6.50) 05/29/23 23:00 Lymph # (Auto) 1.66 K/uL (1.20-3.40) 05/29/23 23:00 [place] # (Auto) 0.77 K/uL (0.11-0.59) H 05/29/23 23:00 Eos # (Auto) 0.09 K/uL (0.00-0.50) 05/29/23 23:00 Baso # (Auto) 0.04 K/uL (0.00-0.20) 05/29/23 23:00 Immature Gran # (Auto) 0.04 K/uL (0.01-0.20) 05/29/23 23:00 PT 10.3 Seconds (9.0-12.0) 05/29/23 23:00 INR 0.9 (0.9-1.1) 05/29/23 23:00 APTT 26.8 Seconds (21.0-31.0) 05/29/23 23:00 PTT Ratio 1.0 05/29/23 23:00 Sodium 139 mmol/L (136-145) 05/30/23 01:55 Potassium 4.1 mmol/L (3.5-5.1) 05/30/23 01:55 Chloride 105 mmol/L (98-107) 05/30/23 01:55 Carbon Dioxide 28 mmol/L (21-32) 05/30/23 01:55 Anion Gap 6 (3-11) 05/30/23 01:55 BUN 14 mg/dl (6-23) 05/30/23 01:55 Creatinine 1.05 mg/dl (0.6-1.4) 05/30/23 01:55 Est Cr Clr Drug Dosing 136.3 ml/min 05/30/23 01:55 Est GFR ( Amer) 89.6 ml/min 05/30/23 01:55 Est GFR (Non-Af Amer) 77.3 ml/min 05/30/23 01:55 BUN/Creatinine Ratio 13.3 (10-20) 05/30/23 01:55 Glucose 158 mg/dl (70-99(Fasting)) H 05/30/23 01:55 Calcium 8.7 mg/dl (8.6-10.3) 05/30/23 01:55 Magnesium 2.1 mg/dl (1.7-2.4) 05/29/23 23:00 Total Bilirubin 0.4 mg/dl (0.2-1.0) 05/29/23 23:00 AST 24 U/L (13-39) 05/29/23 23:00 ALT 26 U/L (7-52) 05/29/23 23:00 Alkaline Phosphatase 117 U/L (34-104) H 05/29/23 23:00 Total Creatine Kinase 183 U/L (30-223) 05/29/23 23:00 Troponin I High Sens 9.8 pg/ml (0-20) 05/29/23 23:00 Total Protein 7.3 gm/dl (6.0-8.3) 05/29/23 23:00 Albumin 4.0 gm/dl (3.4-5.0) 05/29/23 23:00 Globulin 3.3 gm/dl (2.5-4.0) 05/29/23 23:00 Albumin/Globulin Ratio 1.2 (0.9-2) 05/29/23 23:00 Urine Color Yellow 05/30/23 Unknown Urine Appearance Clear (Clear) 05/30/23 Unknown Urine pH 5.0 (4.5-7.5) 05/30/23 Unknown Ur Specific [place] 1.030 (1.000-1.030) 05/30/23 Unknown Urine Protein Negative (Negative) 05/30/23 Unknown Urine Glucose (UA) Negative (Negative) 05/30/23 Unknown Urine Ketones Negative (Negative) 05/30/23 Unknown Urine Blood Negative (Negative) 05/30/23 Unknown Urine Nitrite Negative (Negative) 05/30/23 Unknown Urine Bilirubin Negative (Negative) 05/30/23 Unknown Urine Urobilinogen Negative (Negative) 05/30/23 Unknown Ur Leukocyte Esterase Negative (Negative) 05/30/23 Unknown Salicylates < 3.0 mg/dl (3.0-30) L 05/29/23 23:00 Urine Opiates Screen Neg (Neg) 05/30/23 Unknown Ur Methadone, Qual Neg (Neg) 05/30/23 Unknown Acetaminophen < 3 ug/ml (10-30) L 05/29/23 23:00 Urine Barbiturates Neg (Neg) 05/30/23 Unknown Ur Phencyclidine (PCP) Neg (Neg) 05/30/23 Unknown U Amphetamin/Meth Scrn Neg (Neg) 05/30/23 Unknown MDMA (Ecstasy) Screen Neg (Neg) 05/30/23 Unknown U Benzodiazepines Scrn Neg (Neg) 05/30/23 Unknown Ur Cocaine Metabolite Neg (Neg) 05/30/23 Unknown U Marijuana (THC) Screen Neg (Neg) 05/30/23 Unknown Ethyl Alcohol mg/dL < 10.0 mg/dl (<10.0) 05/29/23 23:00 Impressions Chest X-Ray 05/31/23 09:19 XR chest 1V portable CLINICAL HISTORY: hypoxia TECHNIQUE: Single frontal radiograph of the chest was obtained. Comparison: Comparison is made to chest radiograph 05/29/2023 FINDINGS: Exam is limited by underpenetration. The cardiomediastinal silhouette is normal. The lungs are clear. No evidence of pleural effusion or pneumothorax. IMPRESSION: No acute abnormalities and in particular no radiographic evidence of pneumonia. ACT 112: Negative or not required by law. Electronically signed by: Ajith August M.D. 05/31/2023 9:55 AM Hospital Course (1) Hypertensive crisis: Accidental tramadol overdose Denies any suicidal ideation Poison control consulted Received activated charcoal Monitor for opioid overdose Consult to be cautious with medication use Seizure precautions Hypoxia SALVADOR on CPAP Weaned off of supplemental oxygen Continue CPAP at bedtime 2 step: Did not qualify for supplemental oxygen Chronic diastolic heart failure No signs of acute exacerbation Monitor volume status while Resume home torsemide Hypertension Continue home medications BP variable Monitor CAD S/P stent Continue aspirin, statin, metoprolol Hyperlipidemia Continue Lipitor 80 mg at bedtime Prediabetes HbA1c 6.3 last October 2022 Morbid obesity BMI 67 Needs lifestyle changes DVT Px: Lovenox SQ CODE STATUS Full code Disposition Home Total Time Total Time Spent Total Time Spent (In Minutes): 50 minutes Discharge Plan Discharge Items Patient Disposition: Home - Self-Care Reason For Visit: Drug Overdose Discharge Diagnosis: Accidental tramadol overdose Hypoxia Hypertension Condition on Discharge: Good Activity: Per Instructions section Exercise/Sports: Gradually increase as tolerated Non-emergency contact: Primary Care Provider Call non-emergency contact if: you have any medication questions, your symptoms worsen and your pain is concerning for you Follow-up/Referrals: PCP,NO [Primary Care Provider] - Diet: Heart Healthy Addtl Attending Provider Instructions: Follow-up with your primary physician in 1 week as advised --- Monitor your blood pressure regularly and discuss with your primary care physician for further adjustment of medications as needed Seek immediate medical attention if your symptoms reoccur or worsen Please take all medications as instructed on discharge list below. Please call if you have any questions or problems. You can reach a [facility] hospitalist on duty at [facility] 24 hours a day by calling [phone] Pending Studies at Discharge: No Stand-Alone Forms: My [facility] [employer], Smoking Cessation Medications and DC Order Prescriptions: Continued atorvastatin 80 mg Tablet 80 mg PO QPM meloxicam 15 mg Tablet 15 mg PO QPM lisinopril 20 mg Tablet 20 mg PO QPM ropinirole 0.25 mg Tablet 0.25 mg PO HS aspirin 81 mg Tablet,Delayed Release (Dr/Ec) 81 mg PO HS baclofen 10 mg tablet 10 mg PO HS PRN (Reason: Muscle Spasm) potassium gluconate 595 mg (99 mg) Tablet 595 mg PO HS gabapentin 300 mg capsule 300 mg PO [facility]HS torsemide 20 mg tablet 20 mg PO HS metoprolol succinate 50 mg tablet extended release 24 hr 75 mg PO HS ezetimibe 10 mg tablet 10 mg PO HS nitroglycerin [Nitrostat] 0.4 mg Tablet, Sublingual 0.4 mg Sublingual UD PRN (Reason: chest pain) Qty: 30 0RF Rx Instructions: Please place 1 tab under tongue every 5 mins as needed for pain resolution, max 3 tabs in 24 hours. acetaminophen [Tylenol Extra Strength] 500 mg Tablet 2,000 mg PO DIRECTED PRN (Reason: Pain) Held tramadol 50 mg tablet 50 mg PO Q6H PRN (Reason: Pain) Hold Instructions: hold for 3 days Rx Instructions: PER PT "BY ACCIDENT TO SEVERAL FROM BOTTLE, THINKING IT WAS MY EVENING PILLS". Discharge Orders: Discharge Order (Routine); Ordered 05/31/23 Ordered By: Mark Leonard Admission Data Admit Date/Time: 05/30/23 01:31 Attending Provider: Mark Leonard Admit Provider: Jose M Kendall Primary Care Provider: PCP,NO Other Providers: Jose M Kendall
--- NOTE | 2023-05-31 17:52 | Electrocardiogram Report ---
Test Reason : Blood Pressure : / mmHG Vent. Rate : 096 BPM Atrial Rate : 096 BPM P-R Int : 206 ms QRS Dur : 068 ms QT Int : 334 ms P-R-T Axes : 020 -11 057 degrees QTc Int : 421 ms Normal sinus rhythm Minimal voltage criteria for LVH, may be normal variant ( R in aVL ) Borderline ECG When compared with ECG of 16-SEP-2022 10:13, Vent. rate has increased BY 34 BPM Confirmed by Emiliano Garcia ([id number]) on 05/31/2023 5:52:16 PM Referred By: REFERRED SELF Confirmed By:Emiliano Garcia
--- NOTE | 2023-05-31 17:54 | Electrocardiogram Report ---
Test Reason : Blood Pressure : / mmHG Vent. Rate : 096 BPM Atrial Rate : 096 BPM P-R Int : 194 ms QRS Dur : 090 ms QT Int : 358 ms P-R-T Axes : 040 -11 055 degrees QTc Int : 452 ms Normal sinus rhythm with sinus arrhythmia Normal ECG When compared with ECG of 29-MAY-2023 22:38, (unconfirmed) No significant change Confirmed by Emiliano Garcia ([id number]) on 05/31/2023 5:53:35 PM Referred By: REFERRED SELF Confirmed By:Emiliano Garcia
[2023-05-31] MEDS ORDERED: TORSEMIDE 20 MG TAB PO SCH (21:00)
== END 2023-05-31 14:28 | disposition home or self-care (01) | DRG 305 ==
LOC: ED 22:23 → SUATTDRO 05-30 01:31 → 2S 05-30 01:31